=== PATIENT | female | born 1995 | race Caucasian/White ===

== ENCOUNTER 2023-01-08 16:41 | Emergency (ER) | payer OTHER, SELFPAY ==
--- NOTE | 2023-01-08 16:45 | ED.URI ---
HPI - URI/Sore Throat General Chief Complaint: Upper Respiratory Infection Stated Complaint: Strep Symptoms Time Seen by Provider: 01/08/23 16:45 Source: patient Mode of arrival: ambulatory Limitations: no limitations History of Present Illness HPI Narrative: Patient is a 27-year-old female who presents with 2 days of sore throat, diarrhea and mild congestion. Daughter tested positive for strep throat on Saturday and is currently getting treatment. Patient does co-sleep with daughter and is concerned daughter gave her strep. Denies any fever, chills, ear pain, cough, shortness of breath. Patient has been taking [id number] medication with mild relief. Related Data Home Medications Medication Instructions Recorded Confirmed citalopram 40 mg tablet 40 mg PO DAILY 01/08/23 01/08/23 Allergies Allergy/AdvReac Type Severity Reaction Status Date / Time No Known Allergies Allergy Verified 01/08/23 17:25 Review of Systems Review of Systems: All systems reviewed & are unremarkable except as noted in HPI and below Constitutional: Constitutional: Denies body ache(s), Denies chills, Denies fatigue, Denies fever(s), Denies headache(s), Denies malaise and Denies weakness Eyes: Eyes: Denies blurry vision, Denies itchy eyes and Denies loss of vision ENT: Denies otalgia, Denies headache(s), Reports nasal congestion, Denies sinus pain and Reports sore throat Cardiovascular: Cardiovascular: Denies chest pain, Denies irregular heart rhythm and Denies dyspnea Respiratory: Respiratory: Denies cough and Denies dyspnea Gastrointestinal: Gastrointestinal: Denies abdominal pain, Reports diarrhea, Denies nausea and Denies vomiting Musculoskeletal: Musculoskeletal: Denies back pain, Denies myalgias and Denies arthralgias Integumentary/Breasts: Skin/Breast: Denies pruritus and Denies rash Neurologic: Denies headache(s), Denies loss of vision and Denies weakness Psychiatric: Psychiatric: Reports no additional psychiatric complaints Endocrine: Endocrine: Denies fatigue Allergic/Immunologic: Allergic/Immunologic: Denies itchy eyes PMFSH Comments At time of signature, agree with nursing past medical, surgical, social and family history. There is no relevant family history pertinent to the presenting complaint. Exam Const: General: cooperative, healthy appearing, comfortable, no acute distress and well nourished Nutritional Appearance: well nourished Orientation/consciousness: patient oriented x3 Limitations: no limitations HENMT: Head: normal to inspection, normocephalic and atraumatic Ears: hearing grossly normal bilaterally, external ears normal, TM's normal bilaterally, EAC's normal and no periauricular adenopathy Face/Nose/Sinus: Normal external nose present, Abnormal mucous membranes and turbinates present erythematous bilateral and diffuse, normal facial exam, sinuses nontender and face symmetric Face and sinus: normal facial exam, sinuses nontender and face symmetric Mouth: Yes Normal oral and palatal mucosa present, Yes lip normal, Yes tongue normal, Yes Normal salivary glands and ducts present, Yes oropharynx normal and Yes moist mucous membranes Teeth and gingiva: dentition normal Throat: uvula midline, abnormal tonsil bilateral erythema and hypertrophy 1+, posterior oropharynx abnormal erythema and postnasal drainage Eyes: General: appearance normal, both eyes and all related structures Alignment and Position: alignment normal and position normal Periorbital: periorbital findings normal Eyelids: eyelids normal Pupils: Equal, round and reactive pupils present Neck: Neck: normal visual inspection, full ROM, no lymphadenopathy and supple Chest: Chest palpation & inspection: normal inspection of the chest and normal palpation of entire chest wall Resp: Effort & Inspection: normal respiratory effort and able to speak in complete sentences Auscultation: clear to auscultation bilaterally, no crackles, no rales, no rhonchi
[2023-01-08 16:52] VITALS: BP 129/86; PULSE 78; RESP 16; TEMP 36.3; O2SAT 100
== END 2023-01-08 17:30 | disposition home or self-care (01) ==
PROVIDERS: Emergency Provider Nurse Practitioner Family; PCP Family Medicine
DX: J03.90 Acute tonsillitis, unspecified (principal); Z20.818 Contact with and (suspected) exposure to other bacterial communicable diseases
CPT/HCPCS: 87081; 87880; 99213; G0463

== ENCOUNTER 2024-06-16 11:53 | Emergency (ER) | payer OTHER, SELFPAY ==
--- NOTE | 2024-06-16 11:55 | ECG_ITS ---
Test Date: 2024-06-16 12:49:35 Measurements Intervals [place] Rate: 108 P: 52 MO: 124 QRS: 35 QRSD: 85 T: 21 QT: 363 QTc: 487 Interpretive Statements SINUS TACHYCARDIA POSSIBLE LEFT ATRIAL ENLARGEMENT ST-T WAVE ABNORMALITY IN INF/LAT LEADS- CONSIDER ISCHEMIA BASELINE ARTIFACT- I, II, III, AVR, AVL, AVF, V1-V6 ABNORMAL ECG No previous ECG available for comparison Electronically Signed On 06-17-2024 14:01:49 [employer] by Abdullahi Beltran D.O.
--- OUTSIDE RECORDS SUMMARY | 2024-06-16 12:13 | XMS_ITS | Clinical Summary ---
Author Organization [facility] Address [address] [place] [address] Phone Care Team Providers Care Tool Operator Name Role Phone Unavailable Primary Care Provider Unavailabl e Allergies Active Allergy Reactions Criticality Noted Date Comments Other Unknown 05/16/2015 supramax Medications SPRINTEC 28 0.25-35 MG-MCG Tablet Take 1 Tab by mouth daily. 11 03/05/2015 Active cyanocobalamin 1000 MCG Tablet Take 1,000 mcg by mouth daily. Active Cholecalciferol (VITAMIN D PO) Take 50,000 Units by mouth daily. Active topiramate (TOPAMAX) 25 MG Tablet Take 2 tablets by mouth in the morning and 3 tabs by mouth in the evening 450 Tab 02/19/2018 Active Active Problems Problem Noted Date Diagnosed Date Encephalomalacia 06/27/2015 Vitamin D insufficiency 06/27/2015 B12 deficiency 06/27/2015 Persistent headaches 06/27/2015 Hyperlipidemia 06/27/2015 Immunizations Immunization Administration Dates Next Due Influenza Vaccine greater than 3 yrs 01/21/2018, 01/14/2015 01/15/2016 Family History Medical History Relation Name Comments Hypertension Father Cancer Maternal Grandmother Diabetes Mother Relation Name Status Comments Father Alive Maternal Grandmother Mother Alive Social History Tobacco Use Types Packs/Day Years Used Date Smoking Tobacco: Never Smokeless Tobacco: Never Alcohol Use Standard Drinks/Week Comments Yes 0 (1 standard drink = 0.6 oz pur e alcohol) weekly Comments No Sex and Gender Information Value Date Recorded Sex Assigned at Not on file Legal Sex Female 9:02 PM CDT Gender Identity Not on file Sexual Orientation Not on file Last Filed Vital Signs Vital Sign Reading Time Taken Comments Blood Pressure 122/84 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 Pulse 90 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 Temperature 36.6 ??C (97.9 ??F) 06/27/2015 7:00 AM CS T Respiratory Rate - - Oxygen Saturation 91% 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 Inhaled Oxygen Concentration - - Weight 69.3 kg (152 lb 11.2 oz) 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 Height 160 cm (5' 3 ) 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 Body Mass Index 27.05 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 Plan of Treatment Health Maintenance Due Date Last Done Comments Hepatitis C Virus (HCV) Screening 1993 Pap Smear 2014 Cervical Cancer Screening ([facility]) 09/28/2023 HPV/Cotest 09/28/2023 Influenza Immunization (#1) 2024 10/0 07/2020, 03/21/2020, 12/30/2018, Additional history exists SARS-COV-2 Immunization ( season) 2024 04/17/2021, 09/08/2020, 08/18/2020 Respiratory Syncytial Virus (RSV) Immunization (Adult) (1 - 1-dose 75+ series) 2068 Hepatitis B Immunization Completed 994, 1993, 1993 TdaP Immunization Completed 05/04/2005 Human Papillomavirus (HPV) Immunization Discontinued 02/03/2009, 03/02/2008, 12/30/2007 Meningococcal Immunization (ACWY) Completed 11/21/2011 Pneumococcal Immunization Combined Aged Out No longer eligible based on patient's age to complete this topic Rotavirus Immunization Aged Out No lo nger eligible based on patient's age to complete this topic Insurance [place]
--- OUTSIDE RECORDS SUMMARY | 2024-06-16 12:13 | XMS_ITS ---
Author Organization [facility] Address [address] [place] [address] Phone Care Team Providers Care Prototype Technician Name Role Phone MACO COX, DAQUAN Dow Unavailable [phone] AZAEL ELIZABETH MD Primary Care Provider [phone] Problems Includes: Active, inactive, and resolved Problems All Visits Onset Date Resolved Date Provider Condition S tatus History of Breast Disorders 07/26/2017 Unknown DAQUAN DEWEY MD Resolved Last Documented On 07/09/2018 11:40AM ; [facility] Note: was Closed. History of Depression 07/26/2017 Unknown DAQUAN DEWEY MD Resolved Last Documented On 07/09/2018 11:40AM ; [facility] Note: was Closed. History of Diabetes Mellitus 07/26/2017 Unknown DAQUAN DEWEY MD Resolved Last Documented On 07/09/2018 11:40AM ; [facility] Note: was Closed. History of Essential Hypertension 07/26/2017 Unknown DAQUAN DEWEY MD Resolved Last Documented On 07/09/2018 11:40AM ; [facility] Note: was Closed. History of Neurologic Disorders 07/26/2017 Unknown DAQUAN DEWEY MD Resolved Last Documented On 07/09/2018 11:40AM ; [facility] Note: was Closed. History of Psychiatric Disorders 07/26/2017 Unknown DAQUAN DEWEY MD Resolved Last Documented On 07/09/2018 11:40AM ; [facility] Note: was Closed. History of Reported Physical Trauma 07/26/2017 Unknown DAQUAN DEWEY MD Resolved Last Documented On 07/09/2018 11:40AM ; [facility] Note: was Closed. History of Thromboembolic Disease 07/26/2017 Unknown DAQUAN DEWEY MD Resolved Last Documented On 07/09/2018 11:40AM ; [facility] Note: was Closed. History of Thyroid Disorders 07/26/2017 Unknown DAQUAN DEWEY MD Resolved Last Documented On 07/09/2018 11:40AM ; [facility] Note: was Closed. Reported Previous Std 07/26/2017 Unknown DAQUAN DEWEY MD Resolved Last Documented On 07/09/2018 11:40AM ; [facility] Note: was Closed. Respiratory Disorders 07/26/2017 Unknown DAQUAN DEWEY MD Resolved Last Documented On 07/09/2018 11:40AM ; [facility] Note: was Closed. Vulvovaginitis Dianne Albicans 10/14/2012 NATIVIDAD PERRY RN [facility] Active Last Documented On 10/14/2012 9:11AM ; [facility] Note: Unchanged Candidiasis Vaginal 05/01/2012 NATIVIDAD PERRY RN [facility] Inactive Last Documented On 10/14/2012 9:11AM ; [facility] Note: Unchanged History of Allergic Rhinitis 05/01/2012 NATIVIDAD PERRY RN [facility] Active Last Documented On 05/01/2012 11:32AM ; [facility] Note: Unchanged - seasonal History of Depression 05/01/2012 NATIVIDAD PERRY RN [facility] Active Last Documented On 05/01/2012 11:32AM ; [facility] Note: Unchanged Female Pelvic Pain 12/07/2009 IMTIAZ EMERSON Active Last Documented On 12/07/2009 1:31PM ; [facility] Note: Unchanged Dysmenorrhea 12/07/2009 IMTIAZ EMERSON Active Last Documented On 12/07/2009 1:31PM ; [facility] Note: Unchanged Plan of Treatment Findings Encounter Date Ordered Clinical summary pro vided to patient WELL WOMAN EXAM with NATIVIDAD PERRY RN ASHLEY 03/03/2019 Last Documented On 9 9:37AM ; [facility] Cervix easily visualized , c ervix swabbed with Betadine PROCEDURE OFFICE with DAQUAN DEWEY MD 04/09/2018 Last Documented On 8 9:39AM ; [facility] Tray Line Supervisor removed. PROCEDURE OFFICE with DAQUAN GALLO MD 04/09/2018 Last Documented On 8 9:39AM ; [facility] IUD strings trimmed to 3-4 cm. PROCEDURE OFFICE with DAQUAN DEWEY MD 04/09/2018 Last Documented On 8 9:39AM ; [facility] Mirena contract administration specialist introduced t hrough cervix to 7 cm PROCEDURE OFFICE with DAQUAN DEWEY MD 04/09/2018 Last Documented On 8 9:39AM ; [facility] Mirena contract administration specialist phlange posi tioned to 8 cm, also PROCEDURE OFFICE with DAQUAN DEWEY MD 04/09/2018 Last Documented On 8 9:39AM ; [facility] Mirena released and contract administration specialist advanced to 8 cm PROCEDURE OFFICE with DAQUAN DEWEY MD 04/09/2018 Last Documented On 8 9:39AM ; [facility] Patient tolerated procedure well PROCEDURE OFFIC E with DAQUAN DEWEY MD 04/09/2018 Last Documented On 8 9:39AM ; [facility] Sterile speculum inserted PROCEDURE OFFICE with DAQUAN DEWEY MD 04/09/2018 Last Documented On 8 9:39AM ; [facility] Tenaculum applied to anterior cervix. AK OCEDURE OFFICE with DAQUAN DEWEY MD 04/09/2018 Last Documented On 8 9:39AM ; [facility] Tenaculum removed and pressu re applied to tenaculum sites with cotton swabs until hemostatis obtained. PROCEDURE OFFICE with DAQUAN DEWEY MD 04/09/2018 Last Documented On 8 9:39AM ; [facility] Uterus sounded to 7 cm PROCEDURE OFFICE with DAQUAN DEWEY MD 04/09/2018 Last Documented On 8 9:39AM ; [facility] Ordered Clinical summary pro vided to patient MISSED MENSES with NATIVIDAD PERRY RN [facility] 06/20/2017 Last Documented On 8 8:36AM ; [facility] Ordered Clinical summary pro vided to patient TERMITE CONTROL SERVICER EXAM with NATIVIDAD PERRY RN ASHLEY 01/09/2017 Last Documented On 7 2:57PM ; [facility] Ordered Clinical summary pro vided to patient RECHECK with NATIVIDAD PERRY RN [facility] 02/09/2016 Last Documented On 6 10:36AM ; [facility] Ordered Clinical summary pro vided to patient TERMITE CONTROL SERVICER EXAM with NATIVIDAD PERRY RN ASHLEY 01/09/2016 Last Documented On 6 10:16AM ; [facility] Ordered Clinical summary pro vided to patient TERMITE CONTROL SERVICER EXAM with NATIVIDAD PERRY RN ASH[facility] 10/26/2014 Last Documented On 5 4:19PM ; [facility] Ordered Clinical summary pro vided to patient TERMITE CONTROL SERVICER EXAM with NATIVIDAD PERRY RN [facility] 07/27/2013 Last Documented On 4 10:23AM ; [facility] Ordered a vaginal culture SHIVA GBBS PROBL EM VISIT with NATIVIDAD PERRY RN ASHLEY 11/11/2012 Last Documented On 3 2:05PM ; [facility] Ordered Clinical summary pro vided to patient PROBLEM VISIT with NATIVIDAD PERRY RN [facility] 10/14/2012 Last Documented On 3 9:11AM ; [facility] Pt will let us know if she h as any problems and present back for a second BP check visit like this in 3 months for refilll of pills till time for her WWE next year NEW TERMITE CONTROL SERVICER EXAM with DAQUAN DEWEY MD 04/11/2011 Last Documented On 1 5:13PM ; [facility] Ordered follow-up visit Afte r rn gyn ultrasound to discuss results and possibility of starting OCP's NEW TERMITE CONTROL SERVICER EXAM with IMTIAZ EMERSON 12/07/2009 Last Documented On 0 1:33PM ; [facility] Instructions to patient Instructions for patient : B reast Self Exam discussed and technique reviewed Last Documented On 9 8:48AM ; [facility] Use a condom during sexual i ntercourse Last Documented On 9 8:48AM ; [facility] Instructed to call if excess anish bleeding or abdominal/pelvic pain Last Documented On 9 8:48AM ; [facility] Recommend diet and exercise at least 30 min three times per week Last Documented On 9 8:48AM ; [facility] Instructions for patient ER if dizzy, vomiting or light-headed due to heavy bleeding Last Documented On 9 8:58AM ; [facility] Instructions for patient ER if bleeding through reg. sized pad/tampon < 1 hour Last Documented On 9 8:58AM ; [facility] Instructions for patient : B reast Self Exam discussed and technique reviewed Last Documented On 7 1:21PM ; [facility] Use a condom during sexual i ntercourse Last Documented On 7 1:21PM ; [facility] Instructed to call if excess anish bleeding or abdominal/pelvic pain Last Documented On 7 1:21PM ; [facility] Recommend diet and exercise at least 30 min three times per week Last Documented On 7 1:21PM ; [facility] Instructions for patient : B reast Self Exam discussed and technique reviewed Last Documented On 6 10:03AM ; [facility] Use a condom during sexual i ntercourse Last Documented On 6 10:03AM ; [facility] Instructed to call if excess anish bleeding or abdominal/pelvic pain Last Documented On 6 10:03AM ; [facility] Recommend diet and exercise at least 30 min three times per week Last Documented On 6 10:03AM ; [facility] Instructions for patient : B reast Self Exam discussed and technique reviewed Last Documented On 5 4:09PM ; [facility] Use a condom during sexual i ntercourse Last Documented On 5 4:09PM ; [facility] Instructed to call if excess anish bleeding or abdominal/pelvic pain Last Documented On 5 4:09PM ; [facility] Recommend diet and exercise at least 30 min three times per week Last Documented On 5 4:09PM ; [facility] Instructions for patient : B reast Self Exam discussed and technique reviewed Last Documented On 4 10:01AM ; [facility] Use a condom during sexual i ntercourse Last Documented On 4 10:01AM ; [facility] Instructed to call if excess anish bleeding or abdominal/pelvic pain Last Documented On 4 10:01AM ; [facility] Recommend diet and exercise at least 30 min three times per week DISCUSSED SMALL FREQ. MEALS, INCREASED WATER INTAKE, ACTIVITIES BETWEEN CLASSES. ALL QUESTIONS ANSWERED Last Documented On 4 10:23AM ; [facility] Instructions for patient : K eep the area around the vulva dry. Allow the area to have exposure to air. Avoid irritants such as fabric softeners and perfumed soaps.~ Last Documented On 3 2:02PM ; [facility] Instructions for patient : K eep the area around the vulva dry. Allow the area to have exposure to air. Avoid irritants such as fabric softeners and perfumed soaps.~ Last Documented On 3 9:02AM ; [facility] Instructions for patient : B reast Self Exam discussed and technique reviewed Last Documented On 2 11:03AM ; [facility] Use a condom during sexual i ntercourse Last Documented On 2 11:03AM ; [facility] Instructions For Patient: Mo nthly Self Breast Exam Last Documented On 2 11:03AM ; [facility] Recommend diet and exercise at least 30 min three times per week Last Documented On 2 11:03AM ; [facility] Recommend preventative vacci nation including but not limited to influenza/flu vaccine, DTP, Rubella, Hepatitis B vaccination series Last Documented On 2 11:03AM ; [facility] Education and Decision Aids were provided during visit for: New OB form given to patient Last Documented On 8 8:33AM ; [facility] Patient education RE: natalee g signals associated with hormonal contraceptive use including abdominal, chest, or leg pain, headaches or visual disturbances Last Documented On 7 1:21PM ; [facility] Patient Education: Daily anoop cium and vitamin D Last Documented On 7 1:21PM ; [facility] Patient education RE: warmein g signals associated with hormonal contraceptive use including abdominal, chest, or leg pain, headaches or visual disturbances Last Documented On 6 10:03AM ; [facility] Patient Education: Daily anoop cium and vitamin D Last Documented On 6 10:03AM ; [facility] Patient education RE: natalee painter signals associated with hormonal contraceptive use including abdominal, chest, or leg pain, headaches or visual disturbances Last Documented On 5 4:09PM ; [facility] Patient Education: Daily anoop cium and vitamin D Last Documented On 5 4:09PM ; [facility] Discussed smoking and drug u se Last Documented On 4 10:01AM ; [facility] Patient education RE: natalee painter signals associated with hormonal contraceptive use including abdominal, chest, or leg pain, headaches or visual disturbances Last Documented On 4 10:01AM ; [facility] Patient Education: Daily anoop cium and vitamin D Last Documented On 4 10:01AM ; [facility] Patient education :VAGINAL H YGIENE AND SITZ BATHS TO RELIEVE SX Last Documented On 3 2:05PM ; [facility] Patient education :HANDOUT G LATASHA PT DECLINES STI SEROLOGY Last Documented On 3 9:11AM ; [facility] Patient counseling :VAGINAL HYGIENE Last Documented On 3 9:11AM ; [facility] Discussed use of seat belts Last Documented On 2 11:03AM ; [facility] Discussed smoking and drug u se Last Documented On 2 11:03AM ; [facility] Discussed risk-taking behavi or Last Documented On 2 11:03AM ; [facility] Patient education RE: natalee painter signals associated with hormonal contraceptive use including abdominal, chest, or leg pain, headaches or visual disturbances Last Documented On 2 11:03AM ; [facility] Patient Education: Daily anoop cium and vitamin D Last Documented On 2 11:03AM ; [facility] Patient Education: weight be aring exercise Last Documented On 2 11:03AM ; [facility] Patient will maintain adequa te intake of dietary Ca+ and Mg+ Last Documented On 2 11:03AM ; [facility] control consent review ed and signed Last Documented On 2 11:03AM ; [facility] R/B/A to OCP's are reviewed with the patient and her mother who is present today. Correct pill taking is reviewed, questions answered and pt expresses understanding and wants to continue on the pill Last Documented On 2 5:44PM ; [facility] Risks, benefits, and alterna tives to OCP's are reviewed. Correct pill taking is discussed. Questions answered. Pt expresses understanding and wants to continue on her OCP's Last Documented On 2 8:58AM ; [facility] Assessments Includes: Assessments for all patient encounters Findings Encounter Date Major depression, recurrent WELL WOMAN EXAM with NATIVIDAD PERRY RN [facility] 03/03/2019 Last Documented On 9 9:37AM ; [facility] NORMAL FEMALE EXAM WELL WOMAN EXAM with NATIVIDAD PERRY RN [facility] 03/03/2019 Last Documented On 9 9:37AM ; [facility] Screen malignant neoplasm cervix WELL WO MAN EXAM with NATIVIDAD PERRY RN [facility] 03/03/2019 Last Documented On 9 9:37AM ; [facility] Vaginal candidiasis and topical R breast WELL WOMAN EXAM with NATIVIDAD PERRY RN [facility] 03/03/2019 Last Documented On 9 9:37AM ; [facility] Major depressive disorder resolved MED CHECK wit chi PERRY RN [facility] 10/28/2018 Last Documented On 9 4:16PM ; [facility] Dysfunctional uterine bleeding PROBLEM VISIT wit chi PERRY RN [facility] 09/11/2018 Last Documented On 9 9:29AM ; [facility] Major depressive disorder PROBLEM VISIT with ERIC PERRY RN [facility] 09/11/2018 Last Documented On 9 9:29AM ; [facility] Vaginitis PROBLEM VISIT with NATIIVDAD PERRY RN [facility] 09/11/2018 Last Documented On 9 9:29AM ; [facility] Checking intrauterine device (IUD) 1 MONTH CHECK with DAQUAN DEWEY MD 05/14/2018 Last Documented On 9 9:08AM ; [facility] Contraceptive management: In sertion of IUD PROCEDURE OFFICE with DAQUAN DEWEY MD 04/09/2018 Last Documented On 8 9:39AM ; [facility] General counseling on contraception PROC EDURE OFFICE with DAQUAN DEWEY MD 04/09/2018 Last Documented On 8 9:39AM ; [facility] Routine history a nd physical POST VISIT with DAQUAN DEWEY MD 02/26/2018 Last Documented On 8 11:38AM ; [facility] exam with positive result confirmed by vaginal examination MISSED MENSES with NATIVIDAD PERRY RN [facility] 06/20/2017 Last Documented On 8 8:36AM ; [facility] Vaginal candidiasis MISSED MENSES with NATIVIDAD BRAVO RN [facility] 06/20/2017 Last Documented On 8 8:36AM ; [facility] NORMAL FEMALE EXAM TERMITE CONTROL SERVICER EXAM with NATIVIDAD [place] [facility] 01/09/2017 Last Documented On 7 2:57PM ; [facility] Screen malignant neoplasm cervix TERMITE CONTROL SERVICER EXAM with Victor M PERRY RN [facility] 01/09/2017 Last Documented On 7 2:57PM ; [facility] Routine pelvic exam TERMITE CONTROL SERVICER EXAM with NATIVIDAD PERRY RN [facility] 01/09/2016 Last Documented On 6 10:16AM ; [facility] Screen malignant neoplasm cervix TERMITE CONTROL SERVICER EXAM with Victor M PERRY RN [facility] 01/09/2016 Last Documented On 6 10:16AM ; [facility] Contraceptive management TERMITE CONTROL SERVICER EXAM with NATIVIDAD BRAVO RN [facility] 10/26/2014 Last Documented On 5 4:19PM ; [facility] Routine gynecological exam TERMITE CONTROL SERVICER EXAM with NATIVIDAD PERRY RN [facility] 10/26/2014 Last Documented On 5 4:19PM ; [facility] Contraceptive management TERMITE CONTROL SERVICER EXAM with NATIVIDAD BRAVO RN [facility] 07/27/2013 Last Documented On 4 10:23AM ; [facility] Routine gynecological exam TERMITE CONTROL SERVICER EXAM with NATIVIDAD PERRY RN [facility] 07/27/2013 Last Documented On 4 10:23AM ; [facility] Vaginal candidiasis PROBLEM VISIT with NATIVIDAD BRAVO RN [facility] 11/11/2012 Last Documented On 3 2:05PM ; [facility] Dianne albicans vulvovaginitis PROBLEM VISIT with NATIVIDAD PERRY RN [facility] 10/14/2012 Last Documented On 3 9:11AM ; [facility] Contraceptive management NEW TERMITE CONTROL SERVICER EXAM with NATIVIDAD PERRY RN [facility] 05/01/2012 Last Documented On 2 11:32AM ; [facility] NORMAL FEMALE EXAM NEW TERMITE CONTROL SERVICER EXAM with NATIVIDAD SAGE RN [facility] 05/01/2012 Last Documented On 2 11:32AM ; [facility] Routine gynecological exam NEW TERMITE CONTROL SERVICER EXAM with ERIC PERRY RN [facility] 05/01/2012 Last Documented On 2 11:32AM ; [facility] SCREENING FOR STD NEW TERMITE CONTROL SERVICER EXAM with NATIVIDAD Cameron RN [facility] 05/01/2012 Last Documented On 2 11:32AM ; [facility] Vaginal candidiasis NEW TERMITE CONTROL SERVICER EXAM with NATIVIDAD WOODARD RN [facility] 05/01/2012 Last Documented On 2 11:32AM ; [facility] Menorrhagia -- controlling with OCP's BL OOD PRESSURE CHECK-UP with DAQUAN DEWEY MD 10/16/2011 Last Documented On 2 5:45PM ; [facility] Encounter for contraceptive pill surveillance BLOOD PRESSURE CHECK-UP with DAQUAN DEWEY MD 07/11/2011 Last Documented On 2 9:00AM ; [facility] Menorrhagia BLOOD PRESSURE CHECK-UP with DAQUAN DEWEY MD 07/11/2011 Last Documented On 2 9:00AM ; [facility] Menorrhagia NEW TERMITE CONTROL SERVICER EXAM with DAQUAN DEWEY MD 04/11/2011 Last Documented On 1 5:13PM ; [facility] Dysmenorrhea NEW TERMITE CONTROL SERVICER EXAM with IMTIAZ Lal UR AM 12/07/2009 Last Documented On 0 1:33PM ; [facility] Female pelvic pain NEW TERMITE CONTROL SERVICER EXAM with IMTIAZ Lal URAM 12/07/2009 Last Documented On 0 1:33PM ; [facility] Instructions Includes: Instructions for all patient encounters Instructions to patient Instructions for patient : B reast Self Exam discussed and technique reviewed Last Documented On 9 8:48AM ; [facility] Use a condom during sexual i ntercourse Last Documented On 9 8:48AM ; [facility] Instructed to call if excess anish bleeding or abdominal/pelvic pain Last Documented On 9 8:48AM ; [facility] Recommend diet and exercise at least 30 min three times per week Last Documented On 9 8:48AM ; [facility] Instructions for patient ER if dizzy, vomiting or light-headed due to heavy bleeding Last Documented On 9 8:58AM ; [facility] Instructions for patient ER if bleeding through reg. sized pad/tampon < 1 hour Last Documented On 9 8:58AM ; [facility] Instructions for patient : B reast Self Exam discussed and technique reviewed Last Documented On 7 1:21PM ; [facility] Use a condom during sexual i ntercourse Last Documented On 7 1:21PM ; [facility] Instructed to call if excess anish bleeding or abdominal/pelvic pain Last Documented On 7 1:21PM ; [facility] Recommend diet and exercise at least 30 min three times per week Last Documented On 7 1:21PM ; [facility] Instructions for patient : B reast Self Exam discussed and technique reviewed Last Documented On 6 10:03AM ; [facility] Use a condom during sexual i ntercourse Last Documented On 6 10:03AM ; [facility] Instructed to call if excess anish bleeding or abdominal/pelvic pain Last Documented On 6 10:03AM ; [facility] Recommend diet and exercise at least 30 min three times per week Last Documented On 6 10:03AM ; [facility] Instructions for patient : B reast Self Exam discussed and technique reviewed Last Documented On 5 4:09PM ; [facility] Use a condom during sexual i ntercourse Last Documented On 5 4:09PM ; [facility] Instructed to call if excess anish bleeding or abdominal/pelvic pain Last Documented On 5 4:09PM ; [facility] Recommend diet and exercise at least 30 min three times per week Last Documented On 5 4:09PM ; [facility] Instructions for patient : B reast Self Exam discussed and technique reviewed Last Documented On 4 10:01AM ; [facility] Use a condom during sexual i ntercourse Last Documented On 4 10:01AM ; [facility] Instructed to call if excess anish bleeding or abdominal/pelvic pain Last Documented On 4 10:01AM ; [facility] Recommend diet and exercise at least 30 min three times per week DISCUSSED SMALL FREQ. MEALS, INCREASED WATER INTAKE, ACTIVITIES BETWEEN CLASSES. ALL QUESTIONS ANSWERED Last Documented On 4 10:23AM ; [facility] Instructions for patient : K eep the area around the vulva dry. Allow the area to have exposure to air. Avoid irritants such as fabric softeners and perfumed soaps.~ Last Documented On 3 2:02PM ; [facility] Instructions for patient : K eep the area around the vulva dry. Allow the area to have exposure to air. Avoid irritants such as fabric softeners and perfumed soaps.~ Last Documented On 3 9:02AM ; [facility] Instructions for patient : B reast Self Exam discussed and technique reviewed Last Documented On 2 11:03AM ; [facility] Use a condom during sexual i ntercourse Last Documented On 2 11:03AM ; [facility] Instructions For Patient: Mo nthly Self Breast Exam Last Documented On 2 11:03AM ; [facility] Recommend diet and exercise at least 30 min three times per week Last Documented On 2 11:03AM ; [facility] Recommend preventative vacci nation including but not limited to influenza/flu vaccine, DTP, Rubella, Hepatitis B vaccination series Last Documented On 2 11:03AM ; [facility] Education and Decision Aids were provided during visit for: New OB form given to patient Last Documented On 8 8:33AM ; [facility] Patient education RE: warnin g signals associated with hormonal contraceptive use including abdominal, chest, or leg pain, headaches or visual disturbances Last Documented On 7 1:21PM ; [facility] Patient Education: Daily anoop cium and vitamin D Last Documented On 7 1:21PM ; [facility] Patient education RE: warnin g signals associated with hormonal contraceptive use including abdominal, chest, or leg pain, headaches or visual disturbances Last Documented On 6 10:03AM ; [facility] Patient Education: Daily anoop cium and vitamin D Last Documented On 6 10:03AM ; [facility] Patient education RE: warnin g signals associated with hormonal contraceptive use including abdominal, chest, or leg pain, headaches or visual disturbances Last Documented On 5 4:09PM ; [facility] Patient Education: Daily anoop cium and vitamin D Last Documented On 5 4:09PM ; [facility] Discussed smoking and drug u se Last Documented On 4 10:01AM ; [facility] Patient education RE: warnin g signals associated with hormonal contraceptive use including abdominal, chest, or leg pain, headaches or visual disturbances Last Documented On 4 10:01AM ; [facility] Patient Education: Daily anoop cium and vitamin D Last Documented On 4 10:01AM ; [facility] Patient education :VAGINAL H YGIENE AND SITZ BATHS TO RELIEVE SX Last Documented On 3 2:05PM ; [facility] Patient education :HANDOUT Edgar PAGAN PT DECLINES STI SEROLOGY Last Documented On 3 9:11AM ; [facility] Patient counseling :VAGINAL HYGIENE Last Documented On 3 9:11AM ; [facility] Discussed use of seat belts Last Documented On 2 11:03AM ; [facility] Discussed smoking and drug u se Last Documented On 2 11:03AM ; [facility] Discussed risk-taking behavi or Last Documented On 2 11:03AM ; [facility] Patient education RE: warnin g signals associated with hormonal contraceptive use including abdominal, chest, or leg pain, headaches or visual disturbances Last Documented On 2 11:03AM ; [facility] Patient Education: Daily anoop cium and vitamin D Last Documented On 2 11:03AM ; [facility] Patient Education: weight be aring exercise Last Documented On 2 11:03AM ; [facility] Patient will maintain adequa te intake of dietary Ca+ and Mg+ Last Documented On 2 11:03AM ; [facility] control consent review ed and signed Last Documented On 2 11:03AM ; [facility] R/B/A to OCP's are reviewed with the patient and her mother who is present today. Correct pill taking is reviewed, questions answered and pt expresses understanding and wants to continue on the pill Last Documented On 2 5:44PM ; [facility] Risks, benefits, and alterna tives to OCP's are reviewed. Correct pill taking is discussed. Questions answered. Pt expresses understanding and wants to continue on her OCP's Last Documented On 2 8:58AM ; [facility] Medical Equipment - Implanted Devices Includes: Current and historical Devices No Medical Equipment Recorded Medications Includes: Current and historical Medications Current Medications (continue as prescribed) [facility] Ibuprofen 200MG Oral Tablet 09/11/2018 Provider: Diagnosis: PRN Last Documented On 9 8:14AM By MARIBEL PLUMMER ; [facility] Paragard Intrauterine Copper Intrauterine device 04/09 Provider: Diagnosis: Last Documented On 9 8:04AM By MARIBEL PLUMMER ; [facility] Past Medications on file Fluconazole 150 MG Oral Tablet 01/14/2020 - 01/16/2020 Provider: NATIVIDAD DOUGLAS Diagnosis: Acute vaginitis as directed take 1 tablet to day and repeat in 3 days Last Documented On 0 1:09PM By NATIVIDAD DOUGLAS-ASUNCION ; [facility] Citalopram Hydrobromide 20 MG Oral Tablet 12/28/2019 - 03/27/2020 Provider: NATIVIDAD DOUGLAS BC Diagnosis: Major depressive disorder, recurrent, unspecified One tablet daily Last Documented On 0 1:43PM By NATIVIDAD RODRIGUEZ ; [facility] Fluconazole 150 MG Oral Tablet 03/03/2019 - 03/06/2019 Provider: NATIVIDAD DOUGLAS Diagnosis: Candidiasis of v ulva and vagina TAKE 1 TAB today and repeat in 3 days Last Documented On 9 9:11AM By NATIVIDAD RODRIGUEZ ; [facility] Citalopram Hydrobromide 20 MG Oral Tablet 03/03/2019 - 12/28/2019 Provider: NATIVIDAD DOUGLAS Diagnosis: Major depressive disorder, recurrent, unspecified One tablet daily Last Documented On 0 1:41PM By NATIVIDAD RODRIGUEZ ; [facility] Citalopram Hydrobromide 20MG Oral Tablet 10/28/2018 - 03/03/2019 Provider: NATIVIDAD DOUGLAS Diagnosis: Major depressive disorder, recurrent, unspecified One tablet daily Last Documented On 9 9:10AM By NATIVIDAD RODRIGUEZ ; [facility] Citalopram Hydrobromide 20MG Oral Tablet 10/28/2018 - 10/28/2018 Provider: Diagnosis: Last Documented On 9 4:07PM By NATIVIDAD RODRIGUEZ ; [facility] Citalopram Hydrobromide 20MG Oral Tablet 09/11/2018 - 10/28/2018 Provider: NATIVIDAD DOUGLAS Diagnosis: Encounter for screening for depression One tablet daily no further refills authorized Last Documented On 10/28/2018 3:57PM By MAX PLUMMER ; [facility] Fluconazole 150MG Oral Tablet 09/11/2018 - 01/14/2020 Provider: NATIVIDAD DOUGLAS Diagnosis: Acute vaginitis as directed TAKE ONE TAB day 4 and 1 tab day 7 of antibiotic Last Documented On 0 12:56PM By NATIVIDAD RODRIGUEZ ; [facility] Clindamycin HCl 300MG Oral Capsule 09/11/2018 - 09/18/2018 Provider: NATIVIDAD DOUGLAS Diagnosis: Acute vaginitis One tablet twice a day Last Documented On 9 8:53AM By NATIVIDAD RODRIGUEZ ; [facility] Terazol 7 0.4% Vaginal Cream 05/16/2018 - 09/11/2018 Mervin reavesder: DAQUAN DEWEY MD Diagnosis: Sig: one applicator full vaginally qhs x 7 Last Documented On 9 8:14AM By MARIBEL PLUMMER ; [facility] Paragard Intrauterine Copper Intrauterine device 04/09/2018 - 10/28/2018 Provider: Diagnosis: Last Documented On 9 10:33AM By MARIBEL PLUMMER ; [facility] Eletriptan Hydrobromide 40MG Oral Tablet 02/26/2018 - 09/11/2018 Provider: Diagnosis: Last Documented On 9 8:13AM By MARIBEL PLUMMER ; [facility] Breast Pump Miscellaneous 01/16/2018 - 09/11/2018 Provider: MARISSA OLIVASBC Diagnosis: Encounter for ca re and examination of lactating mother as directed Last Documented On 9 8:13AM By MARIBEL PLUMMER ; [facility] Breast Pump Miscellaneous 01/10/2018 - 01/10/2018 Provider: DAQUAN DEWEY MD Diagnosis: Encounter for ca re and examination of lactating mother Disp one electric breast pum p with supplies; EDC 01/19/2018. Last Documented On 8 2:33PM By MARISSA DOUGLAS-BC ; [facility] ValACYclovir HCl 1GM Oral Tablet 11/25/2017 - 09/12/19 19 Provider: DAQUAN DEEWY MD Diagnosis: One tablet daily Last Documented On 9 8:14AM By MARIBEL PLUMMER ; [facility] Nitrofurantoin Monohyd Macro 100MG Oral Capsule 11/11/2017 - 11/18/2017 Provider: NATIVIDAD DOUGLAS BC Diagnosis: Hematuria, unspe cified One tablet twice a day Last Documented On 8 4:13PM By NATIVIDAD DOUGLAS-BC ; [facility] Amoxicillin 500MG Oral Capsule 08/15/2017 - 08/22/2017 Provider: NATIVIDAD DOUGLAS BC Diagnosis: Acute vaginitis One tablet three times a day TAKE DIRECTED WITH FOOD Last Documented On 8 2:27PM By NATIVIDAD RODRIGUEZ ; [facility] Terconazole 80MG Vaginal Suppository 08/12/2017 - 08/15/2017 Provider: NATIVIDAD DOUGLAS Diagnosis: Candidiasis of v ulva and vagina as directed ONE SUPP IN VAGI NA EVERY NIGHT X 3 Last Documented On 8 8:29AM By NATIVIDAD OLIVAS ; [facility] 28-0.8MG Oral Tablet 06/20/2017 - 019 Provider: Diagnosis: Last Documented On 9 8:13AM By MARIBEL PLUMMER ; [facility] PNV-Select 27-0.6-0.4MG Oral Tablet 06/20/2017 - 06/20/2017 Provider: NATIVIDAD DOUGLAS Diagnosis: Encounter for test, result positive 1 tablet every morning Last Documented On 8 8:30AM By NATIVIDAD RODRIGUEZ ; [facility] Terconazole 80MG Vaginal Suppository 06/20/2017 - 08/12/2017 Provider: NATIVIDAD DOUGLAS Diagnosis: Candidiasis of v ulva and vagina as directed ONE SUPP IN VAGI NA EVERY NIGHT X 3 Last Documented On 8 8:29AM By NATIVIDAD RODRIGUEZ ; [facility] PNV-Select 27-0.6-0.4MG Oral Tablet 06/20/2017 - 06/15/2018 Provider: NATIVIDAD DOUGLAS Diagnosis: Encounter for test, result positive 1 tablet every morning Last Documented On 8 8:30AM By NATIVIDAD RODRIGUEZ ; [facility] Tri-Sprintec 0.18/0.215/0.25MG-35 MCG Oral Tablet 02/25/2017 - 06/20/2017 Provider: NATIVIDAD DOUGLAS Diagnosis: Encounter for contraceptive management, unspecified One tablet daily TAKE DIRECTED W/FOOD Last Documented On 06/20/2017 7:59AM By Chanell Norwood MA ; [facility] Tri-Sprintec 0.18/0.215/0.25MG-35 MCG Oral Tablet 01/09/2017 - 02/25/2017 Provider: NATIVIDAD DOUGLAS BC Diagnosis: Encounter for contraceptive management, unspecified One tablet daily TAKE DIRECTED W/FOOD Last Documented On 7 1:54PM By NATIVIDAD RODRIGUEZ ; [facility] Fluconazole 150MG Oral Tablet 01/09/2017 - 01/11/2017 Provider: NATIVIDAD DOUGLAS BC Diagnosis: Candidiasis of v ulva and vagina One tablet today and repeat in 3 days Last Documented On 7 1:43PM By NATIVIDAD RODRIGUEZ ; [facility] MonoNessa 0.25-35MG-MCG Oral Tablet 12/10/2016 - 01/07/2017 Provider: NATIVIDAD DOUGLAS BC Diagnosis: Encounter for surveillance of contraceptive pills *1 dly - One tablet daily On e tablet daily TAKE TAB DAILY AT THE SAME TIME W/FOOD Last Documented On 7 3:22PM By NATIVIDAD RODRIGUEZ ; [facility] Amitriptyline HCl 50 MG Tablet 01/09/2016 - 06/20/2017 Provider: Diagnosis: Last Documented On 06/20/2017 7:59AM By Chanell Norwood MA ; [facility] MonoNessa 0.25-35 MG-MCG Tablet 01/09/2016 - 12/10/2016 Provider: NATIVIDAD DOUGLAS BC Diagnosis: Encounter for surveillance of contraceptive pills *1 dly - One tablet daily On e tablet daily TAKE TAB DAILY AT THE SAME TIME W/FOOD Last Documented On 7 3:21PM By NATIVIDAD RODRIGUEZ ; [facility] MonoNessa 0.25-35 MG-MCG Tablet 12/14/2015 - 01/11/2016 Provider: NATIVIDAD DOUGLAS BC Diagnosis: One tablet daily Last Documented On 6 11:58AM By NATIVIDAD RODRIGUEZ ; [facility] Sprintec 28 0.25-35 MG-MCG Tablet 09/09/2015 - 11/04/2015 Provider: NATIVIDAD DOUGLAS BC Diagnosis: One tablet daily Last Documented On 6 3:13PM By NATIVIDAD RODRIGUEZ ; [facility] MonoNessa 0.25-35 MG-MCG Tablet 10/26/2014 - 12/14/2015 Provider: NATIVIDAD DOUGLAS BC Diagnosis: OTHER FAMILY ESTEVAN NNING ADVICE NEC One tablet daily Last Documented On 6 11:57AM By NATIVIDAD RODRIGUEZ ; [facility] Sprintec 28 0.25-35 MG-MCG OR TABS 06/28/2014 - 09/09/2015 Provider: NATIVIDAD DOUGLAS BC Diagnosis: Last Documented On 6 3:13PM By NATIVIDAD RODRIGUEZ ; [facility] MonoNessa 0.25-35 MG-MCG OR TABS 07/27/2013 - 10/26/2014 Provider: NATIVIDAD PERRY RN ASHLEY BC Diagnosis: OTHER FAMILY ESTEVAN NNING ADVICE NEC Last Documented On 5 4:13PM By NATIVIDAD RODRIGUEZ ; [facility] Topiramate 200 MG OR TABS 07/27/2013 - 06/20/2017 Prov ider: Diagnosis: 150 MG Last Documented On 06/20/2017 7:59AM By Chanell Norwood MA ; [facility] Imitrex 100 MG OR TABS 07/27/2013 - 01/09/2016 Provide r: Diagnosis: Last Documented On 01/09/2016 10:04AM By BETSY ELENA MA ; [facility] MonoNessa 0.25-35 MG-MCG OR TABS 04/28/2013 - 01/09/2016 Provider: NATIVIDAD DOUGLAS BC Diagnosis: CONTRACEPT PILL SURVEILL TAKE TAB DAILY AT THE SAME TIME W/FOOD Last Documented On 6 10:15AM By NATIVIDAD RODRIGUEZ ; [facility] MonoNessa 0.25-35 MG-MCG OR TABS 04/13/2013 - 04/28/2013 Provider: NATIVIDAD PERRY RN ASHLEY BC Diagnosis: OTHER FAMILY ESTEVAN NNING ADVICE NEC Last Documented On 3 10:32AM By NATIVIDAD RODRIGUEZ ; [facility] Fluconazole 150 MG OR TABS 11/11/2012 - 03/03/2019 Provider: NATIVIDAD DOUGLAS BC Diagnosis: CANDIDAL VULVOVA GINITIS TAKE 1 TAB TODAY , 1 TAB 7/4, AND 1 TAB 7/6 Last Documented On 9 9:10AM By NATIVIDAD RODRIGUEZ ; [facility] Nystatin [id number] UNIT/GM EX CREA 11/11/2012 - 11/18/2012 Provider: NATIVIDAD PERRY RN ASHLEY Diagnosis: CANDIDAL VULVOVA GINITIS APPLY TO AREAS 3 TIMES A DAY DIRECTED PLEASE DISPENSE 30 GM TUBE Last Documented On 3 1:48PM By NATIVIDAD OLIVAS ; [facility] Amoxicillin 500 MG OR CAPS 10/17/2012 - 10/24/2012 Pro vider: NATIVIDAD PERRY RN ASHLEY Diagnosis: VAGINITIS NOS use as directed w/food Last Documented On 3 2:37PM By NATIVIDAD OLIVAS ; [facility] Terconazole 0.4% VA CREA 10/14/2012 - 11/04/2012 Provider: NATIVIDAD PERRY RN ASHLEY Diagnosis: CANDIDAL VULVOVA GINITIS one kenneth in vagina every nigh t x 7 apply bid to perineum Last Documented On 3 9:04AM By NATIVIDAD OLIVAS ; [facility] Fluconazole 150 MG OR TABS 05/01/2012 - 09/11/2018 Provider: NATIVIDAD PERRY RN ASHLEY Diagnosis: CANDIDAL VULVOVA GINITIS TAKE ONE TAB TODAY AND ONE TAB 05/03/12 Last Documented On 9 8:51AM By NATIVIDAD OLIVAS ; [facility] MonoNessa 0.25-35 MG-MCG OR TABS 05/01/2012 - 04/13/2013 Provider: NATIVIDAD PERRY RN ASHLEY Diagnosis: OTHER FAMILY ESTEVAN NNING ADVICE NEC Last Documented On 3 8:18AM By NATIVIDAD OLIVAS ; [facility] Ortho-Cyclen (28) 0.25-35 MG-MCG OR TABS 03/27/2012 - 04/24/2012 Provider: DAQUAN DEWEY MD Diagnosis: Excessive Menstr uation Last Documented On 03/27/2012 1:42PM By DAQUAN DEWEY MD ; [facility] Ortho-Cyclen (28) 0.25-35 MG-MCG OR TABS 10/16/2011 - 03/27/2012 Provider: DAQUAN DEWEY MD Diagnosis: Excessive Menstr uation Last Documented On 03/27/2012 1:41PM By DAQUAN DEWEY MD ; [facility] Ortho-Cyclen (28) 0.25-35 MG-MCG OR TABS 07/23/2011 - 10/16/2011 Provider: DAQUAN DEWEY MD Diagnosis: Excessive Menstr uation Last Documented On 10/16/2011 4:38PM By DAQUAN DEWEY MD ; [facility] Ortho-Cyclen (28) 0.25-35 MG-MCG OR TABS 04/11/2011 - 07/11/2011 Provider: DAQUAN DEWEY MD Diagnosis: Excessive Menstr uation Last Documented On 07/23/2011 8:59AM By DAQUAN DEWEY MD ; [facility] Zoloft 25 MG OR TABS 12/07/2009 - 07/27/2013 Provider: Diagnosis: Last Documented On 07/27/2013 9:52AM By RAMESH ESPINO ; [facility] Medications Administered Includes: Administered Medications in patient's chart No Administered Medications Recorded Results Includes: Results from 06/16/2023 through 06/16/2024 No Results Recorded For Specified Dates History of Present Illness History of Present Illness not supported for this document type No History of Present Illness Recorded Social History Description Last Updated Currently 03/03/2019 Last Documented On 9 9:37AM ; [facility] Activities 03/03/2019 Last Documented On 9 9:37AM ; [facility] Amount of sleep 03/03/2019 Last Documented On 9 9:37AM ; [facility] Education history 03/03/2019 Last Documented On 9 9:37AM ; [facility] Educational level 03/03/2019 Last Documented On 9 9:37AM ; [facility] Personal history 03/03/2019 Last Documented On 9 9:37AM ; [facility] Sexually active 03/03/2019 Last Documented On 9 9:37AM ; [facility] Alcohol use socially 03/03/2019 Last Documented On 9 9:37AM ; [facility] In monogamous relationship 03/03/2019 Last Documented On 9 9:37AM ; [facility] Non-smoker 03/03/2019 Last Documented On 9 9:37AM ; [facility] Not using drugs 03/03/2019 Last Documented On 9 9:37AM ; [facility] Sexually active with 1 partners in the l ast year 03/03/2019 Last Documented On 9 9:37AM ; [facility] Social history unchanged 03/03/2019 Last Documented On 9 9:37AM ; [facility] Smoking status : Never smoker 03/03/2019 Last Documented On 9 9:37AM ; [facility] Procedures and Surgical History Surgical History Last Updated Surgical / procedural history finger sew n on 03/03/2019 Last Documented On 9 9:37AM ; [facility] History of surgery 07/26/2017 Last Documented On 8 8:32AM ; [facility] Medical History Includes: Medical History in patient's chart Description Last Updated No recent change in medical history 02/11 Last Documented On 9 9:37AM ; [facility] LMP: 12/28/2018 03/03/2019 Last Documented On 9 9:37AM ; [facility] Sexually active 03/03/2019 Last Documented On 9 9:37AM ; [facility] Contraception: paragard 04-09-18 019 Last Documented On 9 9:37AM ; [facility] History of Pap smear done 02/26/2018 Last Documented On 9 9:37AM ; [facility] Result: normal 03/03/2019 Last Documented On 9 9:37AM ; [facility] 1 04/09/2018 Last Documented On 8 9:39AM ; [facility] Para 1 04/09/2018 Last Documented On 8 9:39AM ; [facility] PRIMARY CARE PROVIDER : [place] 2015 Last Documented On 6 10:16AM ; [facility] History of Gardasil 2011 07/27/2013 Last Documented On 4 10:23AM ; [facility] Family History Includes: Family History in patient's chart Description Last Updated Family history unchanged 03/03/2019 Last Documented On 9 9:37AM ; [facility] Maternal history of diabetes mellitus mo m 03/03/2019 Last Documented On 9 9:37AM ; [facility] Paternal history of hypertension dad Last Documented On 9 9:37AM ; [facility] Paternal history of pure hypercholestero lemia father 03/03/2019 Last Documented On 9 9:37AM ; [facility] Family history of diabetes mellitus mom 05/01/2012 Last Documented On 2 11:32AM ; [facility] Family history of hypertension dad 05/01 Last Documented On 2 11:32AM ; [facility] Family history of Diabetes MOTHER 2009 Last Documented On 0 1:33PM ; [facility] Review of Systems Review of Systems not supported for this document type No Review of Systems Recorded Mental Status No Mental Status Recorded Functional Status No Functional Status Recorded Physical Exam Physical Exam not supported for this document type No Physical Exam Recorded Immunizations Includes: Immunizations in patient's chart Vaccine Dose # Date Site Reaction(s) Status Source HPV, (quadrivalent) Gardasil 1 12/18/2007 Complete (Reported) Patient Last Documented On 0 1:32PM ; [facility] HPV, (quadrivalent) Gardasil 2 02/17/2008 Complete (Reported) Patient Last Documented On 0 1:32PM ; [facility] HPV, (quadrivalent) Gardasil 3 06/18/2008 Complete (Reported) Patient Last Documented On 0 1:32PM ; [facility] Allergies Includes: Active, inactive, and resolved Allergies Substance Type Reaction Onset Date Resolved Date Statu s Suprax Allergy 12/07/2009 Active Last Documented On 9 8:14AM ; [facility] Imitrex Allergy Skin Rashes / Eruption of skin, Hives / Urticaria 07/27/2013 Active Last Documented On 9 8:14AM ; [facility] Insurance Includes: Active Insurance Policies No Insurance Coverage Recorded Guarantor Relationship Effective Dates Guarantor Ph one LUIZ HERNANDEZ [id number] Clinical Notes Includes: Signed Clinical Notes starting from 06/01/2022 No Clinical Notes Recorded
--- OUTSIDE RECORDS SUMMARY | 2024-06-16 12:13 | XMS_ITS | Clinical Summary ---
Author Organization [facility] Address [address] [place] [address] Phone Care Team Providers Care Scheduling Agent Name Role Phone MACO COX, DAQUAN Dow Unavailable [phone] CLARA COX, AZAEL Antony Primary Care Provider [phone] Reason for Visit and Chief Complaint WELL WOMAN EXAM Problems Includes: Problems addressed during this encounter and other active Problems All Visits Onset Date Resolved Date Provider Condition S tatus Vulvovaginitis Dianne Albicans 10/14/2012 NATIVIDAD PERRY RN [facility] Active Last Documented On 10/14/2012 9:11AM ; [facility] Note: Unchanged History of Allergic Rhinitis 05/01/2012 NATIVIDAD PERRY RN ASHLEY Active Last Documented On 05/01/2012 11:32AM ; [facility] Note: Unchanged - seasonal History of Depression 05/01/2012 NATIVIDAD PERRY RN ASHLEY Active Last Documented On 05/01/2012 11:32AM ; [facility] Note: Unchanged Female Pelvic Pain 12/07/2009 IMTIAZ EMERSON Active Last Documented On 12/07/2009 1:31PM ; [facility] Note: Unchanged Dysmenorrhea 12/07/2009 IMTIAZ EMERSON Active Last Documented On 12/07/2009 1:31PM ; [facility] Note: Unchanged Plan of Treatment No Plan of Treatment Recorded Assessments Includes: Assessments from this encounter No Assessments Recorded Medical Equipment - Implanted Devices Includes: Current Devices No Medical Equipment Recorded Medications Includes: Medications discussed during this encounter and other current Medications Current Medications (continue as prescribed) [facility] Ibuprofen 200MG Oral Tablet 09/11/2018 Provider: Diagnosis: PRN Last Documented On 9 8:14AM By MARIBEL PLUMMER ; [facility] Paragard Intrauterine Copper Intrauterine device 04/09 Provider: Diagnosis: Last Documented On 9 8:04AM By MARIBEL PLUMMER ; [facility] Medications Administered Includes: Administered Medications from this encounter No Administered Medications Recorded Results Includes: Results discussed during this encounter No Results Recorded For Specified Dates History of Present Illness Includes: History of Present Illness from this encounter No History of Present Illness Recorded Social History No Social History Recorded - Smoking Status Unknown Medical History Includes: Medical History addressed during this encounter No Medical History Recorded Family History Includes: Family History addressed during this encounter No Family History Recorded Review of Systems Includes: Review of Systems from this encounter No Review of Systems Recorded Mental Status Includes: Mental Status from this encounter No Mental Status Recorded Functional Status Includes: Functional Status from this encounter No Functional Status Recorded Physical Exam Includes: Physical Exam from this encounter No Physical Exam Recorded Allergies Includes: Active Allergies Substance Type Reaction Onset Date Resolved Date Statu s Suprax Allergy 12/07/2009 Active Last Documented On 9 8:14AM ; [facility] Imitrex Allergy Skin Rashes / Eruption of skin, Hives / Urticaria 07/27/2013 Active Last Documented On 9 8:14AM ; [facility] Insurance Includes: Active Insurance Policies No Insurance Coverage Recorded Guarantor Relationship Effective Dates Guarantor Ph one LUIZ HERNANDEZ [id number] Clinical Notes Includes: Clinical Notes from this encounter No Clinical Notes Recorded
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
--- OUTSIDE RECORDS SUMMARY | 2024-06-16 12:13 | XMS_ITS | Clinical Summary ---
Author Organization [facility] Address [address] [place] [address] Phone Care Team Providers Care Geoscience Professor Name Role Phone MACO COX, DAQUAN oDw Unavailable [phone] CLARA COX, AZAEL Antony Primary Care Provider [phone] Reason for Visit and Chief Complaint NO SHOW Problems Includes: Problems addressed during this encounter and other active Problems All Visits Onset Date Resolved Date Provider Condition S tatus Vulvovaginitis Dianne Albicans 10/14/2012 NATIVIDAD PERRY RN [facility] Active Last Documented On 10/14/2012 9:11AM ; [facility] Note: Unchanged History of Allergic Rhinitis 05/01/2012 NATIVIDAD PERRY RN [facility] Active Last Documented On 05/01/2012 11:32AM ; [facility] Note: Unchanged - seasonal History of Depression 05/01/2012 NATIVIDAD PERRY RN [facility] Active Last Documented On 05/01/2012 11:32AM ; [facility] Note: Unchanged Female Pelvic Pain 12/07/2009 IMTIAZ EMERSON Active Last Documented On 12/07/2009 1:31PM ; [facility] Note: Unchanged Dysmenorrhea 12/07/2009 IMTIAZ EMERSON Active Last Documented On 12/07/2009 1:31PM ; [facility] Note: Unchanged Plan of Treatment No Plan [...] 8:14AM By MARIBEL PLUMMER ; [facility] Paragard Intrauterine Copper Intrauterine device 04/09 Provider: Diagnosis: Last Documented On 9 8:04AM By MARIBEL PLUMMER ; [facility] Medications Administered Includes: Administered Medications from this [...] Documented On 9 8:14AM ; [facility] Imitrex Allergy Skin Rashes / Eruption of skin, Hives / Urticaria 07/27/2013 Active Last Documented On 9 8:14AM ; [facility] Encounters Encounter Provider Location Date Check-In Time Check-Out Time Diagnosis NO SHOW NATIVIDAD DOUGLAS [facility]- 04/20/2020 10:04AM 11:59PM Insurance Includes: Active Insurance Policies No Insurance Coverage Recorded Guarantor Relationship Effective Dates Guarantor Ph one LUIZ HERNANDEZ [id number] Clinical Notes Includes: Clinical Notes from this encounter No Clinical Notes Recorded
--- OUTSIDE RECORDS SUMMARY | 2024-06-16 12:13 | XMS_ITS | Clinical Summary ---
Author Organization [facility] Address [address] [place] [address] Phone Care Team Providers Care Consolidator Name Role Phone MACO COX, DAQUAN Dow Unavailable [phone] CLARA COX, AZAEL Antony Primary Care Provider [phone] Reason for Visit and Chief Complaint [Patient Encounter] Problems Includes: Problems addressed during this encounter and other active Problems All Visits Onset Date Resolved Date Provider Condition S tatus Vulvovaginitis Dianne Albicans 10/14/2012 NATIVIDAD PERRY RN [facility] Active Last Documented On 10/14/2012 9:11AM ; [facility] Note: Unchanged History of Allergic Rhinitis 05/01/2012 NATIVIDAD PERRY RN [facility] Active Last Documented On 05/01/2012 11:32AM ; [facility] Note: Unchanged - seasonal History of Depression 05/01/2012 NATIVIDAD PERRY RN [facility] Active Last Documented On 05/01/2012 11:32AM ; [facility] Note: Unchanged Female Pelvic Pain 12/07/2009 IMTIAZ EMERSON Active Last Documented On 12/07/2009 1:31PM ; [facility] Note: Unchanged Dysmenorrhea 12/07/2009 IMTIAZ EMERSON Active Last Documented On 12/07/2009 1:31PM ; [facility] Note: Unchanged Plan of Treatment No Plan [...] On 9 8:14AM By MARIBEL PLUMMER ; [facility] Paragard Intrauterine Copper Intrauterine device 04/09 Provider: Diagnosis: Last Documented On 9 8:04AM By MARIBEL PLUMMER ; [facility] Medications Administered Includes: Administered Medications from this [...] Active Last Documented On 9 8:14AM ; [facility] Imitrex Allergy Skin Rashes / Eruption of skin, Hives / Urticaria 07/27/2013 Active Last Documented On 9 8:14AM ; [facility] Encounters Encounter Provider Location Date Check-In Time Check- Out Time Diagnosis [Patient Encounter] NATIVIDAD PERRY RN [facility]- 0 10:52AM 11:59PM Insurance Includes: Active Insurance Policies No Insurance Coverage Recorded Guarantor Relationship Effective Dates Guarantor Ph one LUIZ HERNANDEZ [id number] Clinical Notes Includes: Clinical Notes from this encounter No Clinical Notes Recorded
--- OUTSIDE RECORDS SUMMARY | 2024-06-16 12:13 | XMS_ITS ---
Care Plan - [facility] Created on: June 16, 2024 LUIZ HERNANDEZ Parvez : 1995 Sex: Female Author Organization [facility] Address [address] [place] [address] Phone Care Team Providers Care Tissue Technologist Name Role Phone MACO COX, DAQUAN C Unavailable [phone] CLARA COX, AZAEL Antony Primary Care Provider [phone]
--- OUTSIDE RECORDS SUMMARY | 2024-06-16 12:13 | XMS_ITS | Clinical Summary ---
Author Organization [facility] Address [address] [place] [address] Phone Care Team Providers Care Digital Media Planner Name Role Phone MACO COX, DAQUAN Dow Unavailable [phone] CLARA COX, AZAEL Antony Primary Care Provider [phone] Reason for Visit and Chief Complaint ANNUAL MANAGER IMAGE EXAM Problems Includes: Problems addressed during this encounter and other active Problems All Visits Onset Date Resolved Date Provider Condition S tatus Vulvovaginitis Dianne Albicans 10/14/2012 NATIVIDAD PERRY RN [facility] Active Last Documented On 10/14/2012 9:11AM ; [facility] Note: Unchanged History of Allergic Rhinitis 05/01/2012 NATIVIDAD PERRY RN [facility] Active Last Documented On 05/01/2012 11:32AM ; [facility] Note: Unchanged - seasonal History of Depression 05/01/2012 NATIVIDAD PERRY RN [facility] Active Last Documented On 05/01/2012 11:32AM ; [facility] Note: Unchanged Female Pelvic Pain 12/07/2009 IMTIAZ EMERSON Active Last Documented On 12/07/2009 1:31PM ; [facility] Note: Unchanged Dysmenorrhea 12/07/2009 IMTIAZ EMERSON Active Last Documented On 12/07/2009 1:31PM ; [facility] Note: Unchanged Plan of Treatment No Plan [...] On 9 8:14AM By MARIBEL PLUMMER ; [facility] Paragard Intrauterine Copper Intrauterine device 04/09 Provider: Diagnosis: Last Documented On 9 8:04AM By MARIBEL PLUMMER ; [facility] Medications Administered Includes: Administered Medications from this [...] Active Last Documented On 9 8:14AM ; [facility] Imitrex Allergy Skin Rashes / Eruption of skin, Hives / Urticaria 07/27/2013 Active Last Documented On 9 8:14AM ; [facility] Insurance Includes: Active Insurance Policies No Insurance Coverage Recorded Guarantor Relationship Effective Dates Guarantor Ph one LUIZ HERNANDEZ [id number] Clinical Notes Includes: Clinical Notes from this encounter No Clinical Notes Recorded
--- OUTSIDE RECORDS SUMMARY | 2024-06-16 12:14 | XMS_ITS | Clinical Summary ---
Author Organization [facility] Address [address] [place] [address] Phone Care Team Providers Care Probation Agent Name Role Phone MACO COX, DAQUAN Dow Unavailable [phone] CLARA COX, AZAEL Antony Primary Care Provider [phone] Reason for Visit and Chief Complaint RX ISSUE/REFILL Problems Includes: Problems addressed during this encounter and other active Problems All Visits Onset Date Resolved Date Provider Condition S tatus Vulvovaginitis Dianne Albicans 10/14/2012 NATIVIDAD PERRY RN ASHLEY Active Last Documented On 10/14/2012 9:11AM ; [facility] Note: Unchanged History of Allergic Rhinitis 05/01/2012 NATIVIDAD PERRY RN ASHLEY Active Last Documented On 05/01/2012 11:32AM ; [facility] Note: Unchanged - seasonal History of Depression 05/01/2012 NATIVIDAD PERRY RN ASHLEY Active Last Documented On 05/01/2012 11:32AM ; [facility] Note: Unchanged Female Pelvic Pain 12/07/2009 IMTIAZ EMERSON Active Last Documented On 12/07/2009 1:31PM ; [facility] Note: Unchanged Dysmenorrhea 12/07/2009 IMTIAZ EMERSON Active Last Documented On 12/07/2009 1:31PM ; [facility] Note: Unchanged Plan of Treatment No Plan of Treatment Recorded Assessments Includes: Assessments from this encounter No Assessments Recorded Medical Equipment - Implanted Devices Includes: Current Devices No Medical Equipment Recorded Medications Includes: Medications discussed during this encounter and other current Medications New / Renewed during this visit NATIVIDAD PERRY RN ASHLEY BC on 01/14/2020 Fluconazole 150 MG Oral Tablet Provider: NATIVIDAD PERRY RN Brannon [facility] 2 day supply: 2 tablet, 0 refills Diagnosis: Acute vaginitis as directed take 1 tablet to day and repeat in 3 days Pharmacy: [address], [address] - Last Documented On 0 1:09PM By NATIVIDAD RODRIGUEZ ; [facility] Current Medications (continue as prescribed) [facility] Ibuprofen 200MG Oral Tablet 09/11/2018 Provider: Diagnosis: PRN Last Documented On 9 8:14AM By MARIBEL PLUMMER ; [facility] Paragard Intrauterine Copper Intrauterine device 04/09 Provider: Diagnosis: Last Documented On 9 8:04AM By MARIBEL PLUMMER ; [facility] Past Medications on file Citalopram Hydrobromide 20 MG Oral Tablet 12/28/2019 - 03/27/2020 Provider: NATIVIDAD DOUGLAS Diagnosis: Major depressive disorder, recurrent, unspecified One tablet daily Last Documented On 0 1:43PM By NATIVIDAD RODRIGUEZ ; [facility] Fluconazole 150 MG Oral Tablet 03/03/2019 - 03/06/2019 Provider: NATIVIDAD DOUGLAS Diagnosis: Candidiasis of v ulva and vagina TAKE 1 TAB today and repeat in 3 days Last Documented On 9 9:11AM By NATIVIDAD RODRIGUEZ ; [facility] Clindamycin HCl 300MG Oral Capsule 09/11/2018 - 09/18/2018 Provider: NATIVIDAD ROLAND Diagnosis: Acute vaginitis One tablet twice a day Last Documented On 9 8:53AM By NATIVIDAD RODRIGUEZ ; [facility] Nitrofurantoin Monohyd Macro 100MG Oral Capsule 11/11/2017 - 11/18/2017 Provider: NATIVIDAD ROLAND Diagnosis: Hematuria, unspe cified One tablet twice a day Last Documented On 8 4:13PM By NATIVIDAD RODIRGUEZ ; [facility] Amoxicillin 500MG Oral Capsule 08/15/2017 - 08/22/2017 Provider: NATIVIDAD ROLAND Diagnosis: Acute vaginitis One tablet three times a day TAKE DIRECTED WITH FOOD Last Documented On 8 2:27PM By NATIVIDAD RODRIGUEZ ; [facility] Terconazole 80MG Vaginal Suppository 08/12/2017 - 08/15/2017 Provider: NATIVIDAD ROLAND Diagnosis: Candidiasis of v ulva and vagina as directed ONE SUPP IN VAGI NA EVERY NIGHT X 3 Last Documented On 8 8:29AM By NATIVIDAD RODRIGUEZ ; [facility] PNV-Select 27-0.6-0.4MG Oral Tablet 06/20/2017 - 06/15/2018 Provider: NATIVIDAD DOUGLAS BC Diagnosis: Encounter for test, result positive 1 tablet every morning Last Documented On 8 8:30AM By NATIVIDAD RODRIGUEZ ; [facility] Fluconazole 150MG Oral Tablet 01/09/2017 - 01/11/2017 Provider: NATIVIDAD DOUGLAS BC Diagnosis: Candidiasis of v ulva and vagina One tablet today and repeat in 3 days Last Documented On 7 1:43PM By NATIVIDAD RODRIGUEZ ; [facility] MonoNessa 0.25-35MG-MCG Oral Tablet 12/10/2016 - 01/07/2017 Provider: NATIVIDAD DOUGLAS BC Diagnosis: Encounter for surveillance of contraceptive pills *1 dly - One tablet daily On e tablet daily TAKE TAB DAILY AT THE SAME TIME W/FOOD Last Documented On 7 3:22PM By NATIVIDAD RODRIGUEZ ; [facility] MonoNessa 0.25-35 MG-MCG Tablet 12/14/2015 - 01/11/2016 Provider: NATIVIDAD DOUGLAS BC Diagnosis: One tablet daily Last Documented On 6 11:58AM By NATIVIDAD RODRIGUEZ ; [facility] Sprintec 28 0.25-35 MG-MCG Tablet 09/09/2015 - 11/04/2015 Provider: NATIVIDAD DOUGLAS BC Diagnosis: One tablet daily Last Documented On 6 3:13PM By NATIVIDAD RODRIGUEZ ; [facility] Nystatin 794143 UNIT/GM EX CREA 11/11/2012 - 11/18/2012 Provider: NATIVIDAD DOUGLAS BC Diagnosis: CANDIDAL VULVOVA GINITIS APPLY TO AREAS 3 TIMES A DAY DIRECTED PLEASE DISPENSE 30 GM TUBE Last Documented On 3 1:48PM By NATIVIDAD OLIVAS ; [facility] Amoxicillin 500 MG OR CAPS 10/17/2012 - 10/24/2012 Pro vider: NATIVIDAD PERRY RN ASHLEY Diagnosis: VAGINITIS NOS use as directed w/food Last Documented On 3 2:37PM By NATIVIDAD OLIVAS ; [facility] Terconazole 0.4% VA CREA 10/14/2012 - 11/04/2012 Provider: NATIVIDAD PERRY RN ASHLEY Diagnosis: CANDIDAL VULVOVA GINITIS one kenneth in vagina every nigh t x 7 apply bid to perineum Last Documented On 3 9:04AM By NATIVIDAD OLIVAS ; [facility] Ortho-Cyclen (28) 0.25-35 MG-MCG OR TABS 03/27/2012 - 04/24/2012 Provider: DAQUAN DEWEY MD Diagnosis: Excessive Menstr uation Last Documented On 03/27/2012 1:42PM By DAQUAN DEWEY MD ; [facility] Medications Administered Includes: Administered Medications from this encounter No Administered Medications Recorded Results Includes: Results discussed during this encounter No Results Recorded For Specified Dates History of Present Illness Includes: History of Present Illness from this encounter No History of Present Illness Recorded Social History No Social History Recorded - Smoking Status Unknown Procedures and Surgical History Surgical History Last Updated Surgical / procedural history finger sew n on 03/03/2019 Last Documented On 0 12:48PM ; [facility] History of surgery tip of finger 018 Last Documented On 0 12:48PM ; [facility] Medical History Includes: Medical History addressed during this encounter Description Last Updated No recent change in medical history 02/11 Last Documented On 0 12:48PM ; [facility] LMP: 12/28/2018 03/03/2019 Last Documented On 0 12:48PM ; [facility] Sexually active 03/03/2019 Last Documented On 0 12:48PM ; [facility] Contraception: paragard 04-09-18 019 Last Documented On 0 12:48PM ; [facility] History of Pap smear done 02/26/2018 Last Documented On 0 12:48PM ; [facility] Result: normal 03/03/2019 Last Documented On 0 12:48PM ; [facility] 1 04/09/2018 Last Documented On 0 12:48PM ; [facility] Para 1 04/09/2018 Last Documented On 0 12:48PM ; [facility] PRIMARY CARE PROVIDER : Clara 2015 Last Documented On 0 12:48PM ; [facility] History of Gardasil 2011 07/27/2013 Last Documented On 0 12:48PM ; [facility] Family History Includes: Family History addressed during this encounter Description Last Updated Family history unchanged 03/03/2019 Last Documented On 0 12:48PM ; [facility] Maternal history of diabetes mellitus mo m 03/03/2019 Last Documented On 0 12:48PM ; [facility] Paternal history of hypertension dad Last Documented On 0 12:48PM ; [facility] Paternal history of pure hypercholestero lemia father 03/03/2019 Last Documented On 0 12:48PM ; [facility] Family history of diabetes mellitus mom 05/01/2012 Last Documented On 0 12:56PM ; [facility] Family history of hypertension dad 05/01 Last Documented On 0 12:48PM ; [facility] Family history of Diabetes MOTHER 2009 Last Documented On 0 12:48PM ; [facility] Review of Systems Includes: Review of Systems [...] Active Last Documented On 9 8:14AM ; [facility] Imitrex Allergy Skin Rashes / Eruption of skin, Hives / Urticaria 07/27/2013 Active Last Documented On 9 8:14AM ; [facility] Encounters Encounter Provider Location Date Check-In Time Check-Out Time Diagnosis RX ISSUE/REFILL NATIVIDAD PERRY RN [facility] 01/14/2020 12:48PM 11:59PM Insurance Includes: Active Insurance Policies No Insurance Coverage Recorded Guarantor Relationship Effective Dates Guarantor Ph one LUIZ HERNANDEZ [facility] [id number] Clinical Notes Includes: Clinical Notes from this encounter No Clinical Notes Recorded
[2024-06-16 12:49] VITALS: BP 162/102; PULSE 102; RESP 16; TEMP 36.6; O2SAT 99
--- NOTE | 2024-06-16 13:01 | ED.SOB ---
HPI - SOB/Dyspnea General Chief Complaint: Shortness of Breath/Dyspnea Stated Complaint: Elevated BP, SHOB, Dizziness Time Seen by Provider: 06/16/24 12:40 Focused HPI: Patient is a 28-year-old female who presents to the ER with complaints of shortness of breath, dizziness, and chest tightness. She reports her blood pressure has been also elevated. Patient denies any other relevant medical history. She denies any current back pain, wheezing, recent fevers. GENERAL: Ill-appearing, well-nourished, and in mild distress d/t anxiety. HEAD: Normocephalic, atraumatic. CHEST: Clear to auscultation. ?No respiratory distress. HEART: Tachycardia, regular rhythm. NEURO: ?Alert and oriented x3. Patient screened in triage and initial orders placed.? ?Additional care and disposition to be based upon?diagnostic testing and treatment. Related Data Allergies Allergy/AdvReac Type Severity Reaction Status Date / Time No Known Allergies Allergy Verified 12/09/23 08:56 [facility] Past Medical History Medical History (Updated 06/17/24 @ 19:00 by Carli Goldstein APRN) History of live Migraine Headache Depression Anxiety Surgical History Surgical History (Updated 12/09/23 @ 09:15 by Darrell Guadarrama CMA) H/O tubal ligation Family History Family History (Updated 12/09/23 @ 09:16 by Darrell Guadarrama CMA) Mother Anxiety Depression Diabetes mellitus Father Hypertension Social History Social History Smoking status: Never smoker Course Vital Signs Vital signs: Vital Signs Temperature 36.6 C 06/16/24 12:49 Pulse Rate 102 H 06/16/24 12:49 Respiratory Rate 16 06/16/24 12:49 Blood Pressure 162/102 H 06/16/24 12:49 Pulse Oximetry 99 06/16/24 12:49 Temperature 36.6 C 06/16/24 12:49 Pulse Rate 102 H 06/16/24 12:49 Respiratory Rate 16 06/16/24 12:49 Blood Pressure 162/102 H 06/16/24 12:49 Pulse Oximetry 99 06/16/24 12:49 MDM - SOB/Dyspnea Lab Data 06/16/24 12:55 06/16/24 12:55 Labs: Lab Results 06/16/24 06/16/2425 Range/Units 12:55 13:10 13:13 WBC 10.0 (4.5-10.0) K/mm3 RBC 5.26 (4.2-5.4) M/mm3 Hgb 14.9 (12.0-15.0) g/dL Hct 44.3 (37.0-47.0) % MCV 84.2 (80-100) fl MCH 28.3 (26-34) pg MCHC 33.6 (32-36) g/dl RDW 12.5 (11.5-14.5) % Plt Count 339 (150-375) k/mm3 MPV 10.9 H (7.4-10.4) fl Immature Gran % (Auto) 0.3 (0-0.5) % Neut % (Auto) 84.9 H (45.5-73.1) % Lymph % (Auto) 10.8 L (18.3-44.2) % [place] % (Auto) 3.4 (2.6-8.5) % Eos % (Auto) 0.4 (0-4.4) % Baso % (Auto) 0.2 (0.2-1.2) % Lymph # (Auto) 1.08 (0.9-3.2) K/mm3 [place] # (Auto) 0.3 (0.1-0.6) K/mm3 Eos # (Auto) 0.0 (0-0.3) K/mm3 Baso # (Auto) 0.0 (0.0-0.1) K/mm3 Abs Immat Gran (auto) 0.03 (0.00-0.031) K/mm3 Absolute Neuts (auto) 8.5 H (1.3-6.7) K/mm3 Absolute Nucleated RBC 0.000 (0.0-0.012) K/mm3 Nucleated RBC % 0.0 (0.0-0.2) % Sodium 140 (137-145) mmol/L Potassium 3.8 (3.4-5.0) mmol/L Chloride 101 (98-107) mmol/L Carbon Dioxide 24 (22-30) mmol/L Anion Gap 15 H (4-12) mmol/L BUN 12 (7-17) mg/dL Creatinine 0.54 L (0.7-1.0) mg/dL Estim Creat Clear Calc 126 ml/min Estimated GFR > 60 (59 - ) Glucose 95 (65-110) mg/dL Calcium 10.2 (8.4-10.2) mg/dL Urine Color Yellow (Yellow) Urine Appearance Clear (Clear) Urine pH 7.0 (5.0-9.0) Ur Specific [place] 1.004 (1.001-1.035) Urine Protein Negative (Negative) mg/dL Urine Glucose (UA) Negative (Negative) mg/dL Urine Ketones Negative (Negative) mg/dL Ur Blood (Man) Negative (Negative) Urine Nitrate Negative (Negative) Urine Bilirubin Negative (Negative) Urine Urobilinogen 0.2 (<2.0) mg/dL Leukocyte Esterase Rfl Negative (Negative) HUGO/UL POC Urine HCG, Qual Negative (Negative) Discharge Plan Discharge Clinical Impression: Anxiety Patient Disposition: Elopement After Seen by Prov Condition: Stable Patient Language: Australian Prescriptions: No Action (DME) Auvelity See Rx Instructions .ROUTE .MEDSUPPLY Qty: 1 0RF Rx Instructions: Unknown dose, per psychiatry (DME) methylphenidate See Rx Instructions .ROUTE .MEDSUPPLY Qty: 1 0RF Rx Instructions: Unknown dose, per psychiatry (DME) Hydroxyzine See Rx Instructions .ROUTE .MEDSUPPLY Qty: 1 0RF Rx Instructions: Unknown dose, per psychiatry (DME) progesterone See Rx Instructions .ROUTE .MEDSUPPLY Qty: 1 0RF Rx Instructions: Unknown dose, per retail loss prevention investigator Follow-up/Referrals: Vonda Yeager MD [Primary Care Provider] -
[2024-06-16 13:12] LABS: Basophils Percent Auto 0.2 % (0.2-1.2); Eosinophils Percent Auto 0.4 % (0-4.4); Hematocrit 44.3 % (37.0-47.0); Hemoglobin 14.9 g/dL (12.0-15.0); Immature Granulocyte Absolute 0.03 K/mm3 (0.00-0.031); Immature Granulocyte Percent A 0.3 % (0-0.5); Lymphocytes Absolute Auto 1.08 K/mm3 (0.9-3.2); Lymphocytes Percent Auto 10.8 % (18.3-44.2); Mean Corpuscular HGB Conc 33.6 g/dl (32-36); Mean Corpuscular Hemoglobin 28.3 pg (26-34); Mean Corpuscular Volume 84.2 fl (80-100); Mean Platelet Volume 10.9 fl (7.4-10.4); Monocytes Absolute Auto 0.3 K/mm3 (0.1-0.6); Monocytes Percent Auto 3.4 % (2.6-8.5); Neutrophils Absolute Auto 8.5 K/mm3 (1.3-6.7); Neutrophils Percent Auto 84.9 % (45.5-73.1); Platelet Count Result 339 k/mm3 (150-375); Red Blood Count 5.26 M/mm3 (4.2-5.4); Red Cell Distribution Width 12.5 % (11.5-14.5)
[2024-06-16 13:15] LABS: BEDSIDEPREGUCG Negative (Negative)
[2024-06-16 13:21] LABS: Anion Gap 15 mmol/L (4-12); Blood Urea Nitrogen 12 mg/dL (7-17); Calcium 10.2 mg/dL (8.4-10.2); Carbon Dioxide 24 mmol/L (22-30); Chloride 101 mmol/L (98-107); Estimated CRCL calculation 126 ml/min; Estimated Glomerular Filt Rate > 60; Glucose 95 mg/dL (65-110); Potassium 3.8 mmol/L (3.4-5.0); Sodium 140 mmol/L (137-145)
[2024-06-16 13:21] LABS: Add Urine Microscopic? NO; Appearance Urine Clear (Clear); Bilirubin Urine Negative (Negative); Blood Urine Negative (Negative); Color Urine Yellow (Yellow); Glucose Urine UA Negative (Negative); Ketones Urine Negative (Negative); Leukocyte Esterase Ur Negative LEU/UL (Negative); Nitrate Urine Negative (Negative); Protein Urine Negative (Negative); Specific Grav Ur 1.004 (1.001-1.035); Urobilinogen Urine 0.2 mg/dL (<2.0)
--- OUTSIDE RECORDS SUMMARY | 2024-06-16 17:25 | XMS_ITS ---
Care Plan - [facility] Created on: June 16, 2024 LUIZ HERNANDEZ Parvez : 1995 Sex: Female Author Organization [facility] Address [address] [place] [address] Phone Care Team Providers Care Apns Name Role Phone MACO COX, DAQUAN C Unavailable [phone] CLARA COX, AZAEL Antony Primary Care Provider [phone]
--- OUTSIDE RECORDS SUMMARY | 2024-06-16 17:25 | XMS_ITS | Clinical Summary ---
Author Organization [facility] Address [address] [place] [address] Phone Care Team Providers Care School Bus Dispatcher Name Role Phone MACO COX, DAQUAN Dow Unavailable [phone] CLARA COX, AZAEL Antony Primary Care Provider [phone] Reason for Visit and Chief Complaint WELL WOMAN EXAM Problems Includes: Problems addressed during this encounter and other active Problems All Visits Onset Date Resolved Date Provider Condition S tatus Vulvovaginitis Dianne Albicans 10/14/2012 NATIVIDAD PERRY RN [facility] Active Last Documented On 10/14/2012 9:11AM ; [facility] Note: Unchanged History of Allergic Rhinitis 05/01/2012 NATIVIDAD PERRY RN ASHLEY Active Last Documented On 05/01/2012 11:32AM ; [facility] Note: Unchanged - seasonal History of Depression 05/01/2012 NATIVIDAD PERRY RN ASHLEY Active Last Documented On 05/01/2012 11:32AM ; [facility] Note: Unchanged Female Pelvic Pain 12/07/2009 IMTIAZ EMERSON Active Last Documented On 12/07/2009 1:31PM ; [facility] Note: Unchanged Dysmenorrhea 12/07/2009 IMTIAZ EMERSON Active Last Documented On 12/07/2009 1:31PM ; [facility] Note: Unchanged Plan of Treatment [...] On 9 8:14AM By MARIBEL PLUMMER ; [facility] Paragard Intrauterine Copper Intrauterine device 04/09 Provider: Diagnosis: Last Documented On 9 8:04AM By MARIBEL PLUMMER ; [facility] Medications Administered Includes: Administered Medications [...] Active Last Documented On 9 8:14AM ; [facility] Imitrex Allergy Skin Rashes / Eruption of skin, Hives / Urticaria 07/27/2013 Active Last Documented On 9 8:14AM ; [facility] Insurance Includes: Active Insurance Policies No Insurance Coverage Recorded Guarantor Relationship Effective Dates Guarantor Ph one LUIZ HERNANDEZ [id number] Clinical Notes Includes: Clinical Notes from this encounter No Clinical Notes Recorded
--- OUTSIDE RECORDS SUMMARY | 2024-06-16 17:25 | XMS_ITS | Clinical Summary ---
Author Organization [facility] Address [address] [place] [address] Phone Care Team Providers Care Lead Generation Marketing Manager Name Role Phone MACO COX, DAQUAN Dow Unavailable [phone] CLARA COX, AZAEL Antony Primary Care Provider [phone] Reason for Visit and Chief Complaint NO SHOW Problems Includes: Problems addressed during this encounter and other active Problems All Visits Onset Date Resolved Date Provider Condition S tatus Vulvovaginitis Dianne Albicans 10/14/2012 NATIVIDAD PERRY RN [facility] Active Last Documented On 10/14/2012 9:11AM ; [facility] Note: Unchanged History of Allergic Rhinitis 05/01/2012 NATIVIDAD PERRY RN ASHLEY Active Last Documented On 05/01/2012 11:32AM ; [facility] Note: Unchanged - seasonal History of Depression 05/01/2012 NATIIVDAD PERRY RN ASHLEY Active Last Documented On 05/01/2012 11:32AM ; [facility] Note: Unchanged Female Pelvic Pain 12/07/2009 IMTIAZ EMERSON Active Last Documented On 12/07/2009 1:31PM ; [facility] Note: Unchanged Dysmenorrhea 12/07/2009 IMTIAZ EMERSON Active Last Documented On 12/07/2009 1:31PM ; [facility] Note: Unchanged Plan of Treatment No [...] On 9 8:14AM By MARIBEL PLUMMER ; [facility] Paragard Intrauterine Copper Intrauterine device 04/09 Provider: Diagnosis: Last Documented On 9 8:04AM By MARIBEL PLUMMER ; [facility] Medications Administered Includes: Administered Medications from [...] Active Last Documented On 9 8:14AM ; [facility] Imitrex Allergy Skin Rashes / Eruption of skin, Hives / Urticaria 07/27/2013 Active Last Documented On 9 8:14AM ; [facility] Encounters Encounter Provider Location Date Check-In Time Check-Out Time Diagnosis NO SHOW NATIVIDAD DOUGLAS [facility]- 04/20/2020 10:04AM 11:59PM Insurance Includes: Active Insurance Policies No Insurance Coverage Recorded Guarantor Relationship Effective Dates Guarantor Ph one LUIZ HERNANDEZ [id number] Clinical Notes Includes: Clinical Notes from this encounter No Clinical Notes Recorded
--- OUTSIDE RECORDS SUMMARY | 2024-06-16 17:25 | XMS_ITS | Clinical Summary ---
Author Organization [facility] Address [address] [place] [address] Phone Care Team Providers Care Assistant Front Office Manager Name Role Phone Unavailable Primary Care Provider [...] Comments Blood Pressure 122/84 06/27/2015 7:00 AM ASH CONVEYOR OPERATOR Pulse 90 06/27/2015 7:00 AM ASH CONVEYOR OPERATOR Temperature 36.6 ??C (97.9 ??F) 06/27/2015 7:00 AM CS T Respiratory Rate - - Oxygen Saturation 91% 06/27/2015 7:00 AM ASH CONVEYOR OPERATOR Inhaled Oxygen Concentration - - Weight 69.3 kg (152 lb 11.2 oz) 06/27/2015 7:00 AM ASH CONVEYOR OPERATOR Height 160 cm (5' 3 ) 06/27/2015 7:00 AM ASH CONVEYOR OPERATOR Body Mass Index 27.05 06/27/2015 7:00 AM ASH CONVEYOR OPERATOR Plan of Treatment Health Maintenance Due Date [...] patient's age to complete this topic Insurance [email or web address]
--- OUTSIDE RECORDS SUMMARY | 2024-06-16 17:25 | XMS_ITS | Clinical Summary ---
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 Problems Includes: Problems addressed during this encounter and other active Problems All Visits Onset Date Resolved Date Provider Condition S tatus Vulvovaginitis Dianne Albicans 10/14/2012 NATIVIDAD PERRY RN [facility] Active Last Documented On 10/14/2012 9:11AM ; [facility] Note: Unchanged History of Allergic Rhinitis 05/01/2012 NATIVIDAD PERRY RN [facility] Active Last Documented On 05/01/2012 11:32AM ; [facility] Note: Unchanged - seasonal History of Depression 05/01/2012 NATIVIDAD PERRY RN [facility] Active Last Documented On 05/01/2012 11:32AM ; [facility] Note: Unchanged Female Pelvic Pain 12/07/2009 IMTIAZ EMERSON Active Last Documented On 12/07/2009 1:31PM ; [facility] Note: Unchanged Dysmenorrhea 12/07/2009 IMTIAZ EMERSON Active Last Documented On 12/07/2009 1:31PM ; [facility] Note: Unchanged Plan of Treatment No [...] 8:14AM By MARIBEL PLUMMER ; [facility] Paragard Intrauterine Copper Intrauterine device 04/09 Provider: Diagnosis: Last Documented On 9 8:04AM By MARIBEL PLUMMER ; [facility] Medications Administered Includes: Administered Medications from [...] Active Last Documented On 9 8:14AM ; [facility] Imitrex Allergy Skin Rashes / Eruption of skin, Hives / Urticaria 07/27/2013 Active Last Documented On 9 8:14AM ; [facility] Insurance Includes: Active Insurance Policies No Insurance Coverage Recorded Guarantor Relationship Effective Dates Guarantor Ph one LUIZ HERNANDEZ [id number] Clinical Notes Includes: Clinical Notes from this encounter No Clinical Notes Recorded
--- OUTSIDE RECORDS SUMMARY | 2024-06-16 17:26 | XMS_ITS | Referral Summary ---
Author Organization [facility] Address [address] [place] [address] Care Team Providers Care Air Director Name Role Phone Ely Wood MD Unavailable [phone] No, Physician Primary Care Provider [phone] Encounters Date Type Department Care Team Description 03/16/2024 9:30 AM DIRECTOR INFORMATION Office Visit [facility] at [address] [address] Ely Wood MD DUB (dysfunctional [...] 11/11/2023 Assessment & Plan (03/16/2024 10:07 AM DIRECTOR INFORMATION): Better. DUB (dysfunctional uterine bleeding) 11/14/2022 Assessment & Plan (03/16/2024 10:07 AM DIRECTOR INFORMATION): Will continue on with the prometrium. Assessment [...] medications. Assessment & Plan (05/16/2022 10:35 AM DIRECTOR INFORMATION): Stable. Cont. Current prescription medications. Assessment & [...] 10/2021 Assessment & Plan (03/16/2024 10:07 AM DIRECTOR INFORMATION): Normal in November Will repeat in November 2024 Assessment & Plan (11/11/2023 2:29 PM CDT): Pap repeated today Well woman exam 11/10/2021 Overview (11/11/2023): Lab: Pap:ascus with negative HPV 10/2022 No recent labs. Arnaldo: Colonoscopy: BMD: Gardasil:07/13 Assessment & Plan (03/16/2024 10:08 AM DIRECTOR INFORMATION): Due in November. Assessment & Plan (11/11/2023 [...] citalopram. Assessment & Plan (05/16/2022 10:36 AM DIRECTOR INFORMATION): Stable, however citalopram was increased due to worsening anxiety. Assessment & Plan (01/09/2022 11:15 AM CDT): Sent new Rx for increased dose of citalopram. Patient advised not to change medications on her own. Assessment & Plan (07/21/2021 8:15 PM DIRECTOR INFORMATION): Clinically improved, continue current prescription medications. Assessment & Plan (06/11/2021 11:56 PM DIRECTOR INFORMATION): Re-start Citalopram, referred to psychiatry. Call 911 [...] citalopram. Assessment & Plan (05/16/2022 10:36 AM DIRECTOR INFORMATION): Worsening, increase Citalopram 20 mg up to 40 mg daily. Encouraged patient to see psychiatry and CBT. Assessment & Plan (01/09/2022 11:13 AM CDT): New prescription written for higher dose of citalopram. Patient advised not to change her medications without discussing with primary care physician 1st. Assessment & Plan (06/11/2021 11:56 PM DIRECTOR INFORMATION): Re-start Citalopram, referred to psychiatry. Call 911 [...] brain. Assessment & Plan (06/11/2021 11:55 PM DIRECTOR INFORMATION): Referred to psychiatry for further eval/mgmt. B12 [...] (11/03/2021): Added automatically from request for surgery [id number] Assessment & Plan (01/30/2022 9:58 AM CDT): [...] on file Legal Sex Female 1:41 AM DIRECTOR INFORMATION Gender Identity Female 08/09/2022 10:17 AM CDT Sexual Orientation Something else 08/09/2022 10 :17 AM CDT Last Filed Vital Signs Vital Sign Reading Time Taken Comments Blood Pressure 116/74 03/16/2024 9:28 AM DIRECTOR INFORMATION Pulse 95 10/31/2023 4:31 PM CDT Temperature 36.9 ??C (98.4 ??F) 10/31/2023 4:31 PM CD T Respiratory Rate 17 10/31/2023 4:31 PM CDT Oxygen Saturation 97% 10/31/2023 4:31 PM CDT Inhaled Oxygen Concentration - - Weight 74.8 kg (165 lb) 03/16/2024 9:28 AM DIRECTOR INFORMATION Height 160 cm (5' 3 ) 11/11/2023 [...] THIS SPECIMEN WAS RESCREENED PART OF OUR [employer] PROGRAM. Specimen adequacy: Comment [facility] - 01 [...] PM CDT Performed at: ??01 - [facility] [address] ??[id number] Damage Assessor: Beverly Fermin MD, Phone: ??[phone] Performed at: ??02 - [facility] [address], [place] ??[id number] Damage Assessor: Beverly Fermin MD, Phone: ??[phone] Specimen Comment: [id number] Specimen Comment: No. of containers..01 ThinPrep Vial us Ely Wood MD LAB CYTOLOGY ORDERA BLES Final Result Performing Organization Address City/[facility] Co de Phone Number [facility] - 01 LAB BRIAN 02 * Hepatitis C antibody (11/01/2021 2:55 PM CDT) Hep C Ab Nonreactive Nonreactive MARIM[facility] BENJAMIN ([place]) Comment: Interpretive Data Nonreactive: Antibodies to HCV [...] last revised on 2019. Testing performed by: [facility], [address] [place] [address], [place]., [address] Blood 11/01/2021 2:55 PM CDT 11/02/2021 9:05 AM CDT us Ely Wood MD LAB MICROBI OLOGY - GENERAL ORDERABLES Edited Result - Final Performing Organization Address City/[facility]/ZIP Co de Phone Number MARIMAR SOURAV ([place]) 1 [facility] Department [place] [address] from Last 3 Months or Most Recently Relevant to Health Maintenance Insurance [facility] PLUS [facility] PLUS [facility] [id number] [facility] CHO[facility] PLUS Advance Directives For more information, please contact: [phone] * Full Code (Latest Code Status on File) Date Activated Date Inactivated Comments 01/15/2018 7:10 AM 01/17/2018 6:05 PM * Full Code Date Activated Date Inactivated Comments 01/14/2018 12:19 AM 01/15/2018 7:10 AM * Full Code Date Activated Date Inactivated Comments 01/08/2018 4:29 PM 01/14/2018 12:19 AM Full CPR in case of cardiopulmonary arrest Care Teams Air Director Relationship Specialty Start Date End Date No, Physician PCP - General 03/16/24 Ely Wood MD Consulting Physician Obstetrics and Gynecology 07/21/21
--- OUTSIDE RECORDS SUMMARY | 2024-06-16 17:26 | XMS_ITS | Clinical Summary ---
Author Organization [facility] Address [address] [place] [address] Phone Care Team Providers Care Hardwood Faller Name Role Phone MACO COX, DAQUAN Dow Unavailable [phone] CLARA COX, AZAEL Antony Primary Care Provider [phone] Reason for Visit and Chief Complaint RX ISSUE/REFILL Problems Includes: Problems addressed during this encounter and other active Problems All Visits Onset Date Resolved Date Provider Condition S tatus Vulvovaginitis Dianne Albicans 10/14/2012 NATIVIDAD PERRY RN ASHLEY Active Last Documented On 10/14/2012 9:11AM ; [facility] Note: Unchanged History of Allergic Rhinitis 05/01/2012 NATIVIDAD PERRY RN ASHLEY Active Last Documented On 05/01/2012 11:32AM ; [facility] Note: Unchanged - seasonal History of Depression 05/01/2012 NATIVIDAD PERRY RN ASHLEY Active Last Documented On 05/01/2012 11:32AM ; [facility] Note: Unchanged Female Pelvic Pain 12/07/2009 IMTIAZ EMERSON Active Last Documented On 12/07/2009 1:31PM ; [facility] Note: Unchanged Dysmenorrhea 12/07/2009 IMTIAZ EMERSON Active Last Documented On 12/07/2009 1:31PM ; [facility] Note: Unchanged Plan of Treatment [...] Oral Tablet Provider: NATIVIDAD PERRY RN Brannon [facility] 2 day supply: 2 tablet, 0 refills Diagnosis: Acute vaginitis as directed take 1 tablet to day and repeat in 3 days Pharmacy: [address], [address] - Last Documented On 0 1:09PM By NATIVIDAD RODRIGUEZ ; [facility] Current Medications (continue as prescribed) [facility] Ibuprofen 200MG Oral Tablet 09/11/2018 Provider: Diagnosis: PRN Last Documented On 9 8:14AM By MARIBEL PLUMMER ; [facility] Paragard Intrauterine Copper Intrauterine device 04/09 Provider: Diagnosis: Last Documented On 9 8:04AM By MARIBEL PLUMMER ; [facility] Past Medications on file Citalopram Hydrobromide 20 MG Oral Tablet 12/28/2019 - 03/27/2020 Provider: NATIVIDAD DOUGLAS Diagnosis: Major depressive disorder, recurrent, unspecified One tablet daily Last Documented On 0 1:43PM By NATIVIDAD RODRIGUEZ ; [facility] Fluconazole 150 MG Oral Tablet 03/03/2019 - 03/06/2019 Provider: NATIVIDAD DOUGLAS Diagnosis: Candidiasis of v ulva and vagina TAKE 1 TAB today and repeat in 3 days Last Documented On 9 9:11AM By NATIVIDAD RODRIGUEZ ; [facility] Clindamycin HCl 300MG Oral Capsule 09/11/2018 - 09/18/2018 Provider: NATIVIDAD ROLAND Diagnosis: Acute vaginitis One tablet twice a day Last Documented On 9 8:53AM By NATIVIDAD RODRIGUEZ ; [facility] Nitrofurantoin Monohyd Macro 100MG Oral Capsule 11/11/2017 - 11/18/2017 Provider: NATIVIDAD ROLAND Diagnosis: Hematuria, unspe cified One tablet twice a day Last Documented On 8 4:13PM By NATIVIDAD RODRIGUEZ ; [facility] Amoxicillin 500MG Oral Capsule 08/15/2017 - 08/22/2017 Provider: NATIVIDAD ROLAND Diagnosis: Acute vaginitis One tablet three times a day TAKE DIRECTED WITH FOOD Last Documented On 8 2:27PM By NATIVIDAD RODRIGUEZ ; [facility] Terconazole 80MG Vaginal Suppository 08/12/2017 - 08/15/2017 Provider: NATIVIDAD ROLAND Diagnosis: Candidiasis of v ulva and vagina as directed ONE SUPP IN VAGI NA EVERY NIGHT X 3 Last Documented On 8 8:29AM By NATIVIDAD RODRIGUEZ ; [facility] PNV-Select 27-0.6-0.4MG Oral Tablet 06/20/2017 - 06/15/2018 Provider: NATIVIDAD DOUGLAS BC Diagnosis: Encounter for test, result positive 1 tablet every morning Last Documented On 8 8:30AM By NATIVIDAD RODRIGUEZ ; [facility] Fluconazole 150MG Oral Tablet 01/09/2017 - 01/11/2017 Provider: NATIVIDAD DOUGLAS BC Diagnosis: Candidiasis of v ulva and vagina One tablet today and repeat in 3 days Last Documented On 7 1:43PM By NATIVIDAD RODRIGUEZ ; [facility] MonoNessa 0.25-35MG-MCG Oral Tablet 12/10/2016 - 01/07/2017 Provider: NATIIVDAD DOUGLAS BC Diagnosis: Encounter for surveillance of contraceptive pills *1 dly - One tablet daily On e tablet daily TAKE TAB DAILY AT THE SAME TIME W/FOOD Last Documented On 7 3:22PM By NATIVIDAD RODRIGUEZ ; [facility] MonoNessa 0.25-35 MG-MCG Tablet 12/14/2015 - 01/11/2016 Provider: NATIVIDAD DOUGLAS BC Diagnosis: One tablet daily Last Documented On 6 11:58AM By NATIVIDAD RODRIGUEZ ; [facility] Sprintec 28 0.25-35 MG-MCG Tablet 09/09/2015 - 11/04/2015 Provider: NATIVIDAD DOUGLAS BC Diagnosis: One tablet daily Last Documented On 6 3:13PM By NATIVIDAD RODRIGUEZ ; [facility] Nystatin 668900 UNIT/GM EX CREA 11/11/2012 - 11/18/2012 Provider: NATIVIDAD DOUGLAS BC Diagnosis: CANDIDAL VULVOVA GINITIS APPLY TO AREAS 3 TIMES A DAY DIRECTED PLEASE DISPENSE 30 GM TUBE Last Documented On 3 1:48PM By NATIVIDAD OLIVAS ; [facility] Amoxicillin 500 MG OR CAPS 10/17/2012 - 10/24/2012 Pro vider: NATIVIDAD PERRY RN ASLHEY Diagnosis: VAGINITIS NOS use as directed w/food Last Documented On 3 2:37PM By NATIVIDAD OLIVAS ; [facility] Terconazole 0.4% VA CREA 10/14/2012 - 11/04/2012 Provider: NATIVIDAD PERRY RN ASHLEY Diagnosis: CANDIDAL VULVOVA GINITIS one kenneth in vagina every nigh t x 7 apply bid to perineum Last Documented On 3 9:04AM By NATIVIDAD OLIVAS ; [facility] Ortho-Cyclen (28) 0.25-35 MG-MCG OR TABS 03/27/2012 - 04/24/2012 Provider: DAQUAN DEWEY MD Diagnosis: Excessive Menstr uation Last Documented On 03/27/2012 1:42PM By DAQUAN DEWEY MD ; [facility] Medications Administered Includes: Administered Medications [...] Last Documented On 0 12:48PM ; [facility] History of surgery tip of finger 018 Last Documented On 0 12:48PM ; [facility] Medical History Includes: Medical History addressed during this encounter Description Last Updated No recent change in medical history 02/11 Last Documented On 0 12:48PM ; [facility] LMP: 12/28/2018 03/03/2019 Last Documented On 0 12:48PM ; [facility] Sexually active 03/03/2019 Last Documented On 0 12:48PM ; [facility] Contraception: paragard 04-09-18 019 Last Documented On 0 12:48PM ; [facility] History of Pap smear done 02/26/2018 Last Documented On 0 12:48PM ; [facility] Result: normal 03/03/2019 Last Documented On 0 12:48PM ; [facility] 1 04/09/2018 Last Documented On 0 12:48PM ; [facility] Para 1 04/09/2018 Last Documented On 0 12:48PM ; [facility] PRIMARY CARE PROVIDER : Clara 2015 Last Documented On 0 12:48PM ; [facility] History of Gardasil 2011 07/27/2013 Last Documented On 0 12:48PM ; [facility] Family History Includes: Family History addressed during this encounter Description Last Updated Family history unchanged 03/03/2019 Last Documented On 0 12:48PM ; [facility] Maternal history of diabetes mellitus mo m 03/03/2019 Last Documented On 0 12:48PM ; [facility] Paternal history of hypertension dad Last Documented On 0 12:48PM ; [facility] Paternal history of pure hypercholestero lemia father 03/03/2019 Last Documented On 0 12:48PM ; [facility] Family history of diabetes mellitus mom 05/01/2012 Last Documented On 0 12:56PM ; [facility] Family history of hypertension dad 05/01 Last Documented On 0 12:48PM ; [facility] Family history of Diabetes MOTHER 2009 Last Documented On 0 12:48PM ; [facility] Review of Systems Includes: Review of Systems [...] Last Documented On 9 8:14AM ; [facility] Encounters Encounter Provider Location Date Check-In Time Check-Out Time Diagnosis RX ISSUE/REFILL NATIVIDAD PERRY RN [facility] 01/14/2020 12:48PM 11:59PM Insurance Includes: Active Insurance Policies No Insurance Coverage Recorded Guarantor Relationship Effective Dates Guarantor Ph one LUIZ HERNANDEZ [facility] [id number] Clinical Notes Includes: Clinical Notes from this encounter No Clinical Notes Recorded
--- OUTSIDE RECORDS SUMMARY | 2024-06-16 17:26 | XMS_ITS | Clinical Summary ---
Author Organization [facility] Address [address] [place] [address] Phone Care Team Providers Care Geodetic Advisor Name Role Phone MACO COX, DAQUAN Dow Unavailable [phone] CLARA COX, AZAEL Antony Primary Care Provider [phone] Reason for Visit and Chief Complaint [Patient Encounter] Problems Includes: Problems addressed during this encounter and other active Problems All Visits Onset Date Resolved Date Provider Condition S tatus Vulvovaginitis Dianne Albicans 10/14/2012 NATIVIDAD PERRY RN [facility] Active Last Documented On 10/14/2012 9:11AM ; [facility] Note: Unchanged History of Allergic Rhinitis 05/01/2012 NATIVIDAD PERRY RN ASHLEY Active Last Documented On 05/01/2012 11:32AM ; [facility] Note: Unchanged - seasonal History of Depression 05/01/2012 NATIVIDAD PERRY RN ASHLEY Active Last Documented On 05/01/2012 11:32AM ; [facility] Note: Unchanged Female Pelvic Pain 12/07/2009 IMTIAZ EMERSON Active Last Documented On 12/07/2009 1:31PM ; [facility] Note: Unchanged Dysmenorrhea 12/07/2009 IMTIAZ EMERSON Active Last Documented On 12/07/2009 1:31PM ; [facility] Note: Unchanged Plan of Treatment [...] On 9 8:14AM By MARIBEL PLUMMER ; [facility] Paragard Intrauterine Copper Intrauterine device 04/09 Provider: Diagnosis: Last Documented On 9 8:04AM By MARIBEL PLUMMER ; [facility] Medications Administered Includes: Administered Medications [...] Active Last Documented On 9 8:14AM ; [facility] Imitrex Allergy Skin Rashes / Eruption of skin, Hives / Urticaria 07/27/2013 Active Last Documented On 9 8:14AM ; [facility] Encounters Encounter Provider Location Date Check-In Time Check- Out Time Diagnosis [Patient Encounter] NATIVIDAD PERRY RN ASHLEY [facility]- 0 10:52AM 11:59PM Insurance Includes: Active Insurance Policies No Insurance Coverage Recorded Guarantor Relationship Effective Dates Guarantor Ph one LUIZ HERNANDEZ [id number] Clinical Notes Includes: Clinical Notes from this encounter No Clinical Notes Recorded
--- OUTSIDE RECORDS SUMMARY | 2024-06-16 17:26 | XMS_ITS ---
Author Organization [facility] Address [address] [place] [address] Phone Care Team Providers Care Bus Matron Name Role Phone MACO COX, DAQUAN Dow Unavailable [phone] AZAEL ELIZABETH MD Primary Care Provider [phone] Problems Includes: Active, inactive, and resolved Problems All Visits Onset Date Resolved Date Provider Condition S tatus History of Breast Disorders 07/26/2017 Unknown DAQUAN DEWEY MD Resolved Last Documented On 07/09/2018 11:40AM ; [facility] Note: was Closed. History of Depression 07/26/2017 Unknown DAQUAN DEWEY MD Resolved Last Documented On 07/09/2018 11:40AM ; [facility] Note: was Closed. History of Diabetes Mellitus 07/26/2017 Unknown DAQUAN DEWEY MD Resolved Last Documented On 07/09/2018 11:40AM ; [facility] Note: was Closed. History of Essential Hypertension 07/26/2017 Unknown DAQUAN DEWEY MD Resolved Last Documented On 07/09/2018 11:40AM ; [facility] Note: was Closed. History of Neurologic Disorders 07/26/2017 Unknown DAQUAN DEWEY MD Resolved Last Documented On 07/09/2018 11:40AM ; [facility] Note: was Closed. History of Psychiatric Disorders 07/26/2017 Unknown DAQUAN DEWEY MD Resolved Last Documented On 07/09/2018 11:40AM ; [facility] Note: was Closed. History of Reported Physical Trauma 07/26/2017 Unknown DAQUAN DEWEY MD Resolved Last Documented On 07/09/2018 11:40AM ; [facility] Note: was Closed. History of Thromboembolic Disease 07/26/2017 Unknown DAQUAN DEWEY MD Resolved Last Documented On 07/09/2018 11:40AM ; [facility] Note: was Closed. History of Thyroid Disorders 07/26/2017 Unknown DAQUAN DEWEY MD Resolved Last Documented On 07/09/2018 11:40AM ; [facility] Note: was Closed. Reported Previous Std 07/26/2017 Unknown DAQUAN DEWEY MD Resolved Last Documented On 07/09/2018 11:40AM ; [facility] Note: was Closed. Respiratory Disorders 07/26/2017 Unknown DAQUAN DEWEY MD Resolved Last Documented On 07/09/2018 11:40AM ; [facility] Note: was Closed. Vulvovaginitis Dianne Albicans 10/14/2012 NATIVIDAD PERRY RN [facility] Active Last Documented On 10/14/2012 9:11AM ; [facility] Note: Unchanged Candidiasis Vaginal 05/01/2012 NATIVIDAD PERRY RN [facility] Inactive Last Documented On 10/14/2012 9:11AM ; [facility] Note: Unchanged History of Allergic Rhinitis 05/01/2012 NATIVIDAD PERRY RN [facility] Active Last Documented On 05/01/2012 11:32AM ; [facility] Note: Unchanged - seasonal History of Depression 05/01/2012 NATIVIDAD PERRY RN [facility] Active Last Documented On 05/01/2012 11:32AM ; [facility] Note: Unchanged Female Pelvic Pain 12/07/2009 IMTIAZ EMERSON Active Last Documented On 12/07/2009 1:31PM ; [facility] Note: Unchanged Dysmenorrhea 12/07/2009 IMTIAZ EMERSON Active Last Documented On 12/07/2009 1:31PM ; [facility] Note: Unchanged Plan of Treatment Findings Encounter Date Ordered Clinical summary pro vided to patient WELL WOMAN EXAM with NATIVIDAD PERRY RN [facility] 03/03/2019 Last Documented On 9 9:37AM ; [facility] Cervix easily visualized , c ervix swabbed with Betadine PROCEDURE OFFICE with DAQUAN DEWEY MD 04/09/2018 Last Documented On 8 9:39AM ; [facility] Cashier Courtesy Booth removed. PROCEDURE OFFICE with DAQUAN GALLO MD 04/09/2018 Last Documented On 8 9:39AM ; [facility] IUD strings trimmed to 3-4 cm. PROCEDURE OFFICE with DAQUAN DEWEY MD 04/09/2018 Last Documented On 8 9:39AM ; [facility] Mirena trader introduced t hrough cervix to 7 cm PROCEDURE OFFICE with DAQUAN DEWEY MD 04/09/2018 Last Documented On 8 9:39AM ; [facility] Mirena trader phlange posi tioned to 8 cm, also PROCEDURE OFFICE with DAQUAN DEWEY MD 04/09/2018 Last Documented On 8 9:39AM ; [facility] Mirena released and trader advanced to 8 cm PROCEDURE OFFICE with DAQUAN DEWEY MD 04/09/2018 Last Documented On 8 9:39AM ; [facility] Patient tolerated procedure well PROCEDURE OFFIC E with DAQUAN DEWEY MD 04/09/2018 Last Documented On 8 9:39AM ; [facility] Sterile speculum inserted PROCEDURE OFFICE with DAQUAN DEWEY MD 04/09/2018 Last Documented On 8 9:39AM ; [facility] Tenaculum applied to anterior cervix. OK OCEDURE OFFICE with DAQUAN DEWEY MD 04/09/2018 Last Documented On 8 9:39AM ; [facility] Tenaculum removed and pressu re applied to tenaculum sites with cotton swabs until hemostatis obtained. PROCEDURE OFFICE with DAQUAN DEWEY MD 04/09/2018 Last Documented On 8 9:39AM ; [facility] Uterus sounded to 7 cm PROCEDURE OFFICE with DAQUAN DEWEY MD 04/09/2018 Last Documented On 8 9:39AM ; [facility] Ordered Clinical summary pro vided to patient MISSED MENSES with NATIVIDAD PERRY RN [facility] 06/20/2017 Last Documented On 8 8:36AM ; [facility] Ordered Clinical summary pro vided to patient ENGLISH INSTRUCTOR EXAM with NATIVIDAD PERRY RN [facility] 01/09/2017 Last Documented On 7 2:57PM ; [facility] Ordered Clinical summary pro vided to patient RECHECK with NATIVIDAD PERRY RN [facility] 02/09/2016 Last Documented On 6 10:36AM ; [facility] Ordered Clinical summary pro vided to patient ENGLISH INSTRUCTOR EXAM with NATIVIDAD PERRY RN [facility] 01/09/2016 Last Documented On 6 10:16AM ; [facility] Ordered Clinical summary pro vided to patient ENGLISH INSTRUCTOR EXAM with NATIVIDAD PERRY RN [facility] 10/26/2014 Last Documented On 5 4:19PM ; [facility] Ordered Clinical summary pro vided to patient ENGLISH INSTRUCTOR EXAM with NATIVIDAD PERRY RN [facility] 07/27/2013 Last Documented On 4 10:23AM ; [facility] Ordered a vaginal culture SHIVA GBBS PROBL EM VISIT with NATIVIDAD PERRY RN [facility] 11/11/2012 Last Documented On 3 2:05PM ; [facility] Ordered Clinical summary pro vided to patient PROBLEM VISIT with NATIVIDAD PERRY RN [facility] 10/14/2012 Last Documented On 3 9:11AM ; [facility] Pt will let us know if she h as any problems and present back for a second BP check visit like this in 3 months for refilll of pills till time for her WWE next year NEW ENGLISH INSTRUCTOR EXAM with DAQUAN DEWEY MD 04/11/2011 Last Documented On 1 5:13PM ; [facility] Ordered follow-up visit Afte r tile and marble installer ultrasound to discuss results and possibility of starting OCP's NEW ENGLISH INSTRUCTOR EXAM with IMTIAZ EMERSON 12/07/2009 Last Documented On 0 1:33PM ; [facility] Instructions to patient Instructions for patient : B reast Self Exam discussed and technique reviewed Last Documented On 9 8:48AM ; [facility] Use a condom during sexual i ntercourse Last Documented On 9 8:48AM ; [facility] Instructed to call if excess anish bleeding or abdominal/pelvic pain Last Documented On 9 8:48AM ; [facility] Recommend diet and exercise at least 30 min three times per week Last Documented On 9 8:48AM ; [facility] Instructions for patient ER if dizzy, vomiting or light-headed due to heavy bleeding Last Documented On 9 8:58AM ; [facility] Instructions for patient ER if bleeding through reg. sized pad/tampon < 1 hour Last Documented On 9 8:58AM ; [facility] Instructions for patient : B reast Self Exam discussed and technique reviewed Last Documented On 7 1:21PM ; [facility] Use a condom during sexual i ntercourse Last Documented On 7 1:21PM ; [facility] Instructed to call if excess anish bleeding or abdominal/pelvic pain Last Documented On 7 1:21PM ; [facility] Recommend diet and exercise at least 30 min three times per week Last Documented On 7 1:21PM ; [facility] Instructions for patient : B reast Self Exam discussed and technique reviewed Last Documented On 6 10:03AM ; [facility] Use a condom during sexual i ntercourse Last Documented On 6 10:03AM ; [facility] Instructed to call if excess anish bleeding or abdominal/pelvic pain Last Documented On 6 10:03AM ; [facility] Recommend diet and exercise at least 30 min three times per week Last Documented On 6 10:03AM ; [facility] Instructions for patient : B reast Self Exam discussed and technique reviewed Last Documented On 5 4:09PM ; [facility] Use a condom during sexual i ntercourse Last Documented On 5 4:09PM ; [facility] Instructed to call if excess anish bleeding or abdominal/pelvic pain Last Documented On 5 4:09PM ; [facility] Recommend diet and exercise at least 30 min three times per week Last Documented On 5 4:09PM ; [facility] Instructions for patient : B reast Self Exam discussed and technique reviewed Last Documented On 4 10:01AM ; [facility] Use a condom during sexual i ntercourse Last Documented On 4 10:01AM ; [facility] Instructed to call if excess anish bleeding or abdominal/pelvic pain Last Documented On 4 10:01AM ; [facility] Recommend diet and exercise at least 30 min three times per week DISCUSSED SMALL FREQ. MEALS, INCREASED WATER INTAKE, ACTIVITIES BETWEEN CLASSES. ALL QUESTIONS ANSWERED Last Documented On 4 10:23AM ; [facility] Instructions for patient : K eep the area around the vulva dry. Allow the area to have exposure to air. Avoid irritants such as fabric softeners and perfumed soaps.~ Last Documented On 3 2:02PM ; [facility] Instructions for patient : K eep the area around the vulva dry. Allow the area to have exposure to air. Avoid irritants such as fabric softeners and perfumed soaps.~ Last Documented On 3 9:02AM ; [facility] Instructions for patient : B reast Self Exam discussed and technique reviewed Last Documented On 2 11:03AM ; [facility] Use a condom during sexual i ntercourse Last Documented On 2 11:03AM ; [facility] Instructions For Patient: Mo nthly Self Breast Exam Last Documented On 2 11:03AM ; [facility] Recommend diet and exercise at least 30 min three times per week Last Documented On 2 11:03AM ; [facility] Recommend preventative vacci nation including but not limited to influenza/flu vaccine, DTP, Rubella, Hepatitis B vaccination series Last Documented On 2 11:03AM ; [facility] Education and Decision Aids were provided during visit for: New OB form given to patient Last Documented On 8 8:33AM ; [facility] Patient education RE: natalee g signals associated with hormonal contraceptive use including abdominal, chest, or leg pain, headaches or visual disturbances Last Documented On 7 1:21PM ; [facility] Patient Education: Daily anoop cium and vitamin D Last Documented On 7 1:21PM ; [facility] Patient education RE: warmein g signals associated with hormonal contraceptive use including abdominal, chest, or leg pain, headaches or visual disturbances Last Documented On 6 10:03AM ; [facility] Patient Education: Daily anoop cium and vitamin D Last Documented On 6 10:03AM ; [facility] Patient education RE: natalee painter signals associated with hormonal contraceptive use including abdominal, chest, or leg pain, headaches or visual disturbances Last Documented On 5 4:09PM ; [facility] Patient Education: Daily anoop cium and vitamin D Last Documented On 5 4:09PM ; [facility] Discussed smoking and drug u se Last Documented On 4 10:01AM ; [facility] Patient education RE: natalee painter signals associated with hormonal contraceptive use including abdominal, chest, or leg pain, headaches or visual disturbances Last Documented On 4 10:01AM ; [facility] Patient Education: Daily anoop cium and vitamin D Last Documented On 4 10:01AM ; [facility] Patient education :VAGINAL H YGIENE AND SITZ BATHS TO RELIEVE SX Last Documented On 3 2:05PM ; [facility] Patient education :HANDOUT G LATASHA PT DECLINES STI SEROLOGY Last Documented On 3 9:11AM ; [facility] Patient counseling :VAGINAL HYGIENE Last Documented On 3 9:11AM ; [facility] Discussed use of seat belts Last Documented On 2 11:03AM ; [facility] Discussed smoking and drug u se Last Documented On 2 11:03AM ; [facility] Discussed risk-taking behavi or Last Documented On 2 11:03AM ; [facility] Patient education RE: natalee painter signals associated with hormonal contraceptive use including abdominal, chest, or leg pain, headaches or visual disturbances Last Documented On 2 11:03AM ; [facility] Patient Education: Daily anoop cium and vitamin D Last Documented On 2 11:03AM ; [facility] Patient Education: weight be aring exercise Last Documented On 2 11:03AM ; [facility] Patient will maintain adequa te intake of dietary Ca+ and Mg+ Last Documented On 2 11:03AM ; [facility] control consent review ed and signed Last Documented On 2 11:03AM ; [facility] R/B/A to OCP's are reviewed with the patient and her mother who is present today. Correct pill taking is reviewed, questions answered and pt expresses understanding and wants to continue on the pill Last Documented On 2 5:44PM ; [facility] Risks, benefits, and alterna tives to OCP's are reviewed. Correct pill taking is discussed. Questions answered. Pt expresses understanding and wants to continue on her OCP's Last Documented On 2 8:58AM ; [facility] Assessments Includes: Assessments for all patient encounters Findings Encounter Date Major depression, recurrent WELL WOMAN EXAM with NATIVIDAD PERRY RN [facility] 03/03/2019 Last Documented On 9 9:37AM ; [facility] NORMAL FEMALE EXAM WELL WOMAN EXAM with NATIVIDAD PERRY RN [facility] 03/03/2019 Last Documented On 9 9:37AM ; [facility] Screen malignant neoplasm cervix WELL WO MAN EXAM with NATIVIDAD PERRY RN [facility] 03/03/2019 Last Documented On 9 9:37AM ; [facility] Vaginal candidiasis and topical R breast WELL WOMAN EXAM with NATIVIDAD PERRY RN [facility] 03/03/2019 Last Documented On 9 9:37AM ; [facility] Major depressive disorder resolved MED CHECK wit chi PERRY RN [facility] 10/28/2018 Last Documented On 9 4:16PM ; [facility] Dysfunctional uterine bleeding PROBLEM VISIT wit chi PERRY RN [facility] 09/11/2018 Last Documented On 9 9:29AM ; [facility] Major depressive disorder PROBLEM VISIT with ERIC PERRY RN [facility] 09/11/2018 Last Documented On 9 9:29AM ; [facility] Vaginitis PROBLEM VISIT with NATIVIDAD PERRY RN [facility] 09/11/2018 Last Documented On 9 9:29AM ; [facility] Checking intrauterine device (IUD) 1 MONTH CHECK with DAQUAN DEWEY MD 05/14/2018 Last Documented On 9 9:08AM ; [facility] Contraceptive management: In sertion of IUD PROCEDURE OFFICE with DAQUAN DEWEY MD 04/09/2018 Last Documented On 8 9:39AM ; [facility] General counseling on contraception PROC EDURE OFFICE with DAQUAN DEWEY MD 04/09/2018 Last Documented On 8 9:39AM ; [facility] Routine history a nd physical POST VISIT with DAQUAN DEWEY MD 02/26/2018 Last Documented On 8 11:38AM ; [facility] exam with positive result confirmed by vaginal examination MISSED MENSES with NATIVIDAD PERRY RN [facility] 06/20/2017 Last Documented On 8 8:36AM ; [facility] Vaginal candidiasis MISSED MENSES with NATIVIDAD BRAVO RN [facility] 06/20/2017 Last Documented On 8 8:36AM ; [facility] NORMAL FEMALE EXAM ENGLISH INSTRUCTOR EXAM with NATIVIDAD [place] [facility] 01/09/2017 Last Documented On 7 2:57PM ; [facility] Screen malignant neoplasm cervix ENGLISH INSTRUCTOR EXAM with Victor M PERRY RN [facility] 01/09/2017 Last Documented On 7 2:57PM ; [facility] Routine pelvic exam ENGLISH INSTRUCTOR EXAM with NATIVIDAD PERRY RN [facility] 01/09/2016 Last Documented On 6 10:16AM ; [facility] Screen malignant neoplasm cervix ENGLISH INSTRUCTOR EXAM with Victor M PERRY RN [facility] 01/09/2016 Last Documented On 6 10:16AM ; [facility] Contraceptive management ENGLISH INSTRUCTOR EXAM with NATIVIDAD BRAVO RN [facility] 10/26/2014 Last Documented On 5 4:19PM ; [facility] Routine gynecological exam ENGLISH INSTRUCTOR EXAM with NATIVIDAD PERRY RN [facility] 10/26/2014 Last Documented On 5 4:19PM ; [facility] Contraceptive management ENGLISH INSTRUCTOR EXAM with NATIVIDAD BRAVO RN [facility] 07/27/2013 Last Documented On 4 10:23AM ; [facility] Routine gynecological exam ENGLISH INSTRUCTOR EXAM with NATIVIDAD PERRY RN [facility] 07/27/2013 Last Documented On 4 10:23AM ; [facility] Vaginal candidiasis PROBLEM VISIT with NATIVIDAD BRAVO RN [facility] 11/11/2012 Last Documented On 3 2:05PM ; [facility] Dianne albicans vulvovaginitis PROBLEM VISIT with NATIVIDAD PERRY RN [facility] 10/14/2012 Last Documented On 3 9:11AM ; [facility] Contraceptive management NEW ENGLISH INSTRUCTOR EXAM with NATIVIDAD PERRY RN [facility] 05/01/2012 Last Documented On 2 11:32AM ; [facility] NORMAL FEMALE EXAM NEW ENGLISH INSTRUCTOR EXAM with NATIVIDAD SAGE RN [facility] 05/01/2012 Last Documented On 2 11:32AM ; [facility] Routine gynecological exam NEW ENGLISH INSTRUCTOR EXAM with ERIC PERRY RN [facility] 05/01/2012 Last Documented On 2 11:32AM ; [facility] SCREENING FOR STD NEW ENGLISH INSTRUCTOR EXAM with NATIVIDAD Cameron RN [facility] 05/01/2012 Last Documented On 2 11:32AM ; [facility] Vaginal candidiasis NEW ENGLISH INSTRUCTOR EXAM with NATIVIDAD WOODARD RN [facility] 05/01/2012 Last Documented On 2 11:32AM ; [facility] Menorrhagia -- controlling with OCP's BL OOD PRESSURE CHECK-UP with DAQUAN DEWEY MD 10/16/2011 Last Documented On 2 5:45PM ; [facility] Encounter for contraceptive pill surveillance BLOOD PRESSURE CHECK-UP with DAQUAN DEWEY MD 07/11/2011 Last Documented On 2 9:00AM ; [facility] Menorrhagia BLOOD PRESSURE CHECK-UP with DAQUAN DEWEY MD 07/11/2011 Last Documented On 2 9:00AM ; [facility] Menorrhagia NEW ENGLISH INSTRUCTOR EXAM with DAQUAN DEWEY MD 04/11/2011 Last Documented On 1 5:13PM ; [facility] Dysmenorrhea NEW ENGLISH INSTRUCTOR EXAM with IMTIAZ Lal [facility] AM 12/07/2009 Last Documented On 0 1:33PM ; [facility] Female pelvic pain NEW ENGLISH INSTRUCTOR EXAM with IMTIAZ Lal URAM 12/07/2009 Last Documented On 0 1:33PM ; [facility] Instructions Includes: Instructions for all patient encounters Instructions to patient Instructions for patient : B reast Self Exam discussed and technique reviewed Last Documented On 9 8:48AM ; [facility] Use a condom during sexual i ntercourse Last Documented On 9 8:48AM ; [facility] Instructed to call if excess anish bleeding or abdominal/pelvic pain Last Documented On 9 8:48AM ; [facility] Recommend diet and exercise at least 30 min three times per week Last Documented On 9 8:48AM ; [facility] Instructions for patient ER if dizzy, vomiting or light-headed due to heavy bleeding Last Documented On 9 8:58AM ; [facility] Instructions for patient ER if bleeding through reg. sized pad/tampon < 1 hour Last Documented On 9 8:58AM ; [facility] Instructions for patient : B reast Self Exam discussed and technique reviewed Last Documented On 7 1:21PM ; [facility] Use a condom during sexual i ntercourse Last Documented On 7 1:21PM ; [facility] Instructed to call if excess anish bleeding or abdominal/pelvic pain Last Documented On 7 1:21PM ; [facility] Recommend diet and exercise at least 30 min three times per week Last Documented On 7 1:21PM ; [facility] Instructions for patient : B reast Self Exam discussed and technique reviewed Last Documented On 6 10:03AM ; [facility] Use a condom during sexual i ntercourse Last Documented On 6 10:03AM ; [facility] Instructed to call if excess anish bleeding or abdominal/pelvic pain Last Documented On 6 10:03AM ; [facility] Recommend diet and exercise at least 30 min three times per week Last Documented On 6 10:03AM ; [facility] Instructions for patient : B reast Self Exam discussed and technique reviewed Last Documented On 5 4:09PM ; [facility] Use a condom during sexual i ntercourse Last Documented On 5 4:09PM ; [facility] Instructed to call if excess anish bleeding or abdominal/pelvic pain Last Documented On 5 4:09PM ; [facility] Recommend diet and exercise at least 30 min three times per week Last Documented On 5 4:09PM ; [facility] Instructions for patient : B reast Self Exam discussed and technique reviewed Last Documented On 4 10:01AM ; [facility] Use a condom during sexual i ntercourse Last Documented On 4 10:01AM ; [facility] Instructed to call if excess anish bleeding or abdominal/pelvic pain Last Documented On 4 10:01AM ; [facility] Recommend diet and exercise at least 30 min three times per week DISCUSSED SMALL FREQ. MEALS, INCREASED WATER INTAKE, ACTIVITIES BETWEEN CLASSES. ALL QUESTIONS ANSWERED Last Documented On 4 10:23AM ; [facility] Instructions for patient : K eep the area around the vulva dry. Allow the area to have exposure to air. Avoid irritants such as fabric softeners and perfumed soaps.~ Last Documented On 3 2:02PM ; [facility] Instructions for patient : K eep the area around the vulva dry. Allow the area to have exposure to air. Avoid irritants such as fabric softeners and perfumed soaps.~ Last Documented On 3 9:02AM ; [facility] Instructions for patient : B reast Self Exam discussed and technique reviewed Last Documented On 2 11:03AM ; [facility] Use a condom during sexual i ntercourse Last Documented On 2 11:03AM ; [facility] Instructions For Patient: Mo nthly Self Breast Exam Last Documented On 2 11:03AM ; [facility] Recommend diet and exercise at least 30 min three times per week Last Documented On 2 11:03AM ; [facility] Recommend preventative vacci nation including but not limited to influenza/flu vaccine, DTP, Rubella, Hepatitis B vaccination series Last Documented On 2 11:03AM ; [facility] Education and Decision Aids were provided during visit for: New OB form given to patient Last Documented On 8 8:33AM ; [facility] Patient education RE: warnin g signals associated with hormonal contraceptive use including abdominal, chest, or leg pain, headaches or visual disturbances Last Documented On 7 1:21PM ; [facility] Patient Education: Daily anoop cium and vitamin D Last Documented On 7 1:21PM ; [facility] Patient education RE: warnin g signals associated with hormonal contraceptive use including abdominal, chest, or leg pain, headaches or visual disturbances Last Documented On 6 10:03AM ; [facility] Patient Education: Daily anoop cium and vitamin D Last Documented On 6 10:03AM ; [facility] Patient education RE: warnin g signals associated with hormonal contraceptive use including abdominal, chest, or leg pain, headaches or visual disturbances Last Documented On 5 4:09PM ; [facility] Patient Education: Daily anoop cium and vitamin D Last Documented On 5 4:09PM ; [facility] Discussed smoking and drug u se Last Documented On 4 10:01AM ; [facility] Patient education RE: warnin g signals associated with hormonal contraceptive use including abdominal, chest, or leg pain, headaches or visual disturbances Last Documented On 4 10:01AM ; [facility] Patient Education: Daily anoop cium and vitamin D Last Documented On 4 10:01AM ; [facility] Patient education :VAGINAL H YGIENE AND SITZ BATHS TO RELIEVE SX Last Documented On 3 2:05PM ; [facility] Patient education :HANDOUT Edgar PAGAN PT DECLINES STI SEROLOGY Last Documented On 3 9:11AM ; [facility] Patient counseling :VAGINAL HYGIENE Last Documented On 3 9:11AM ; [facility] Discussed use of seat belts Last Documented On 2 11:03AM ; [facility] Discussed smoking and drug u se Last Documented On 2 11:03AM ; [facility] Discussed risk-taking behavi or Last Documented On 2 11:03AM ; [facility] Patient education RE: warnin g signals associated with hormonal contraceptive use including abdominal, chest, or leg pain, headaches or visual disturbances Last Documented On 2 11:03AM ; [facility] Patient Education: Daily anoop cium and vitamin D Last Documented On 2 11:03AM ; [facility] Patient Education: weight be aring exercise Last Documented On 2 11:03AM ; [facility] Patient will maintain adequa te intake of dietary Ca+ and Mg+ Last Documented On 2 11:03AM ; [facility] control consent review ed and signed Last Documented On 2 11:03AM ; [facility] R/B/A to OCP's are reviewed with the patient and her mother who is present today. Correct pill taking is reviewed, questions answered and pt expresses understanding and wants to continue on the pill Last Documented On 2 5:44PM ; [facility] Risks, benefits, and alterna tives to OCP's are reviewed. Correct pill taking is discussed. Questions answered. Pt expresses understanding and wants to continue on her OCP's Last Documented On 2 8:58AM ; [facility] Medical Equipment - Implanted Devices Includes: Current and historical Devices No Medical Equipment Recorded Medications Includes: Current and historical Medications Current Medications (continue as prescribed) [facility] Ibuprofen 200MG Oral Tablet 09/11/2018 Provider: Diagnosis: PRN Last Documented On 9 8:14AM By MARIBEL PLUMMER ; [facility] Paragard Intrauterine Copper Intrauterine device 04/09 Provider: Diagnosis: Last Documented On 9 8:04AM By MARIBEL PLUMMER ; [facility] Past Medications on file Fluconazole 150 MG Oral Tablet 01/14/2020 - 01/16/2020 Provider: NATIVIDAD DOUGLAS Diagnosis: Acute vaginitis as directed take 1 tablet to day and repeat in 3 days Last Documented On 0 1:09PM By NATIVIDAD DOUGLAS-ASUNCION ; [facility] Citalopram Hydrobromide 20 MG Oral Tablet 12/28/2019 - 03/27/2020 Provider: NATIVIDAD DOUGLAS BC Diagnosis: Major depressive disorder, recurrent, unspecified One tablet daily Last Documented On 0 1:43PM By NATIVIDAD RODRIGUEZ ; [facility] Fluconazole 150 MG Oral Tablet 03/03/2019 - 03/06/2019 Provider: NATIVIDAD DOUGLAS Diagnosis: Candidiasis of v ulva and vagina TAKE 1 TAB today and repeat in 3 days Last Documented On 9 9:11AM By NATIVIDAD RODRIGUEZ ; [facility] Citalopram Hydrobromide 20 MG Oral Tablet 03/03/2019 - 12/28/2019 Provider: NATIVIDAD DOUGLAS Diagnosis: Major depressive disorder, recurrent, unspecified One tablet daily Last Documented On 0 1:41PM By NATIVIDAD RODRIGUEZ ; [facility] Citalopram Hydrobromide 20MG Oral Tablet 10/28/2018 - 03/03/2019 Provider: NATIVIDAD DOUGLAS Diagnosis: Major depressive disorder, recurrent, unspecified One tablet daily Last Documented On 9 9:10AM By NATIVIDAD RODRIGUEZ ; [facility] Citalopram Hydrobromide 20MG Oral Tablet 10/28/2018 - 10/28/2018 Provider: Diagnosis: Last Documented On 9 4:07PM By NATIVIDAD RODRIGUEZ ; [facility] Citalopram Hydrobromide 20MG Oral Tablet 09/11/2018 - 10/28/2018 Provider: NATIVIDAD DOUGLAS Diagnosis: Encounter for screening for depression One tablet daily no further refills authorized Last Documented On 10/28/2018 3:57PM By MAX PLUMMER ; [facility] Fluconazole 150MG Oral Tablet 09/11/2018 - 01/14/2020 Provider: NATIVIDAD DOUGLAS Diagnosis: Acute vaginitis as directed TAKE ONE TAB day 4 and 1 tab day 7 of antibiotic Last Documented On 0 12:56PM By NATIVIDAD RODRIGUEZ ; [facility] Clindamycin HCl 300MG Oral Capsule 09/11/2018 - 09/18/2018 Provider: NATIVIDAD DOUGLAS Diagnosis: Acute vaginitis One tablet twice a day Last Documented On 9 8:53AM By NATIVIDAD RODRIGUEZ ; [facility] Terazol 7 0.4% Vaginal Cream 05/16/2018 - 09/11/2018 Mervin reavesder: DAQUAN DEWEY MD Diagnosis: Sig: one applicator full vaginally qhs x 7 Last Documented On 9 8:14AM By MARIBEL PLUMMER ; [facility] Paragard Intrauterine Copper Intrauterine device 04/09/2018 - 10/28/2018 Provider: Diagnosis: Last Documented On 9 10:33AM By MARIBEL PLUMMER ; [facility] Eletriptan Hydrobromide 40MG Oral Tablet 02/26/2018 - 09/11/2018 Provider: Diagnosis: Last Documented On 9 8:13AM By MARIBEL PLUMMER ; [facility] Breast Pump Miscellaneous 01/16/2018 - 09/11/2018 Provider: MARISSA OLIVASBC Diagnosis: Encounter for ca re and examination of lactating mother as directed Last Documented On 9 8:13AM By MARIBEL PLUMMER ; [facility] Breast Pump Miscellaneous 01/10/2018 - 01/10/2018 Provider: DAQUAN DEWEY MD Diagnosis: Encounter for ca re and examination of lactating mother Disp one electric breast pum p with supplies; EDC 01/19/2018. Last Documented On 8 2:33PM By MARISSA DOUGLAS-BC ; [facility] ValACYclovir HCl 1GM Oral Tablet 11/25/2017 - 09/12/19 19 Provider: DAQUAN DEWEY MD Diagnosis: One tablet daily Last Documented On 9 8:14AM By MARIBEL PLUMMER ; [facility] Nitrofurantoin Monohyd Macro 100MG Oral Capsule 11/11/2017 - 11/18/2017 Provider: NATIVIDAD DOUGLAS BC Diagnosis: Hematuria, unspe cified One tablet twice a day Last Documented On 8 4:13PM By NATIVIDAD DOUGLAS-BC ; [facility] Amoxicillin 500MG Oral Capsule 08/15/2017 - 08/22/2017 Provider: NATIVIDAD DOUGLAS BC Diagnosis: Acute vaginitis One tablet three times a day TAKE DIRECTED WITH FOOD Last Documented On 8 2:27PM By NATIVIDAD RODRIGUEZ ; [facility] Terconazole 80MG Vaginal Suppository 08/12/2017 - 08/15/2017 Provider: NATIVIDAD DOUGLAS Diagnosis: Candidiasis of v ulva and vagina as directed ONE SUPP IN VAGI NA EVERY NIGHT X 3 Last Documented On 8 8:29AM By NATIVIDAD OLIVAS ; [facility] 28-0.8MG Oral Tablet 06/20/2017 - 019 Provider: Diagnosis: Last Documented On 9 8:13AM By MARIBEL PLUMMER ; [facility] PNV-Select 27-0.6-0.4MG Oral Tablet 06/20/2017 - 06/20/2017 Provider: NATIVIDAD DOUGLAS Diagnosis: Encounter for test, result positive 1 tablet every morning Last Documented On 8 8:30AM By NATIVIDAD RODRIGUEZ ; [facility] Terconazole 80MG Vaginal Suppository 06/20/2017 - 08/12/2017 Provider: NATIVIDAD DOUGLAS Diagnosis: Candidiasis of v ulva and vagina as directed ONE SUPP IN VAGI NA EVERY NIGHT X 3 Last Documented On 8 8:29AM By NATIVIDAD RODRIGUEZ ; [facility] PNV-Select 27-0.6-0.4MG Oral Tablet 06/20/2017 - 06/15/2018 Provider: NATIVIDAD DOUGLAS Diagnosis: Encounter for test, result positive 1 tablet every morning Last Documented On 8 8:30AM By NATIVIDAD RODRIGUEZ ; [facility] Tri-Sprintec 0.18/0.215/0.25MG-35 MCG Oral Tablet 02/25/2017 - 06/20/2017 Provider: NATIVIDAD DOUGLAS Diagnosis: Encounter for contraceptive management, unspecified One tablet daily TAKE DIRECTED W/FOOD Last Documented On 06/20/2017 7:59AM By Chanell Norwood MA ; [facility] Tri-Sprintec 0.18/0.215/0.25MG-35 MCG Oral Tablet 01/09/2017 - 02/25/2017 Provider: NATIVIDAD DOUGLAS BC Diagnosis: Encounter for contraceptive management, unspecified One tablet daily TAKE DIRECTED W/FOOD Last Documented On 7 1:54PM By NATIVIDAD RODRIGUEZ ; [facility] Fluconazole 150MG Oral Tablet 01/09/2017 - 01/11/2017 Provider: NATIVIDAD DOUGLAS BC Diagnosis: Candidiasis of v ulva and vagina One tablet today and repeat in 3 days Last Documented On 7 1:43PM By NATIVIDAD RODRIGUEZ ; [facility] MonoNessa 0.25-35MG-MCG Oral Tablet 12/10/2016 - 01/07/2017 Provider: NATIVIDAD DOUGLAS BC Diagnosis: Encounter for surveillance of contraceptive pills *1 dly - One tablet daily On e tablet daily TAKE TAB DAILY AT THE SAME TIME W/FOOD Last Documented On 7 3:22PM By NATIVIDAD RODRIGUEZ ; [facility] Amitriptyline HCl 50 MG Tablet 01/09/2016 - 06/20/2017 Provider: Diagnosis: Last Documented On 06/20/2017 7:59AM By Chanell Norwood MA ; [facility] MonoNessa 0.25-35 MG-MCG Tablet 01/09/2016 - 12/10/2016 Provider: NATIVIDAD DOUGLAS BC Diagnosis: Encounter for surveillance of contraceptive pills *1 dly - One tablet daily On e tablet daily TAKE TAB DAILY AT THE SAME TIME W/FOOD Last Documented On 7 3:21PM By NATIVIDAD RODRIGUEZ ; [facility] MonoNessa 0.25-35 MG-MCG Tablet 12/14/2015 - 01/11/2016 Provider: NATIVIDAD DOUGLAS BC Diagnosis: One tablet daily Last Documented On 6 11:58AM By NATIVIDAD RODRIGUEZ ; [facility] Sprintec 28 0.25-35 MG-MCG Tablet 09/09/2015 - 11/04/2015 Provider: NATIVIDAD DOUGLAS BC Diagnosis: One tablet daily Last Documented On 6 3:13PM By NATIVIADD RODRIGUEZ ; [facility] MonoNessa 0.25-35 MG-MCG Tablet 10/26/2014 - 12/14/2015 Provider: NATIVIDAD DOUGLAS BC Diagnosis: OTHER FAMILY ESTEVAN NNING ADVICE NEC One tablet daily Last Documented On 6 11:57AM By NATIVIDAD RODRIGUEZ ; [facility] Sprintec 28 0.25-35 MG-MCG OR TABS 06/28/2014 - 09/09/2015 Provider: NATIVIDAD DOUGLAS BC Diagnosis: Last Documented On 6 3:13PM By NATIVIDAD RODRIGUEZ ; [facility] MonoNessa 0.25-35 MG-MCG OR TABS 07/27/2013 - 10/26/2014 Provider: NATIVIDAD PERRY RN ASHLEY BC Diagnosis: OTHER FAMILY ESTEVAN NNING ADVICE NEC Last Documented On 5 4:13PM By NATIVIDAD RODRIGUEZ ; [facility] Topiramate 200 MG OR TABS 07/27/2013 - 06/20/2017 Prov ider: Diagnosis: 150 MG Last Documented On 06/20/2017 7:59AM By Chanell Norwood MA ; [facility] Imitrex 100 MG OR TABS 07/27/2013 - 01/09/2016 Provide r: Diagnosis: Last Documented On 01/09/2016 10:04AM By BETSY ELENA MA ; [facility] MonoNessa 0.25-35 MG-MCG OR TABS 04/28/2013 - 01/09/2016 Provider: NATIVIDAD DOUGLAS BC Diagnosis: CONTRACEPT PILL SURVEILL TAKE TAB DAILY AT THE SAME TIME W/FOOD Last Documented On 6 10:15AM By NATIVIDAD RODRIGUEZ ; [facility] MonoNessa 0.25-35 MG-MCG OR TABS 04/13/2013 - 04/28/2013 Provider: NATIVIDAD PERRY RN ASHLEY BC Diagnosis: OTHER FAMILY ESTEVAN NNING ADVICE NEC Last Documented On 3 10:32AM By NATIVIDAD RODRIGUEZ ; [facility] Fluconazole 150 MG OR TABS 11/11/2012 - 03/03/2019 Provider: NATIVIDAD DOUGLAS BC Diagnosis: CANDIDAL VULVOVA GINITIS TAKE 1 TAB TODAY , 1 TAB 7/4, AND 1 TAB 7/6 Last Documented On 9 9:10AM By NATIVIDAD RODRIGUEZ ; [facility] Nystatin 441225 UNIT/GM EX CREA 11/11/2012 - 11/18/2012 Provider: NATIVIDAD PERRY RN ASHLEY Diagnosis: CANDIDAL VULVOVA GINITIS APPLY TO AREAS 3 TIMES A DAY DIRECTED PLEASE DISPENSE 30 GM TUBE Last Documented On 3 1:48PM By NATIVIDAD OLIVAS ; [facility] Amoxicillin 500 MG OR CAPS 10/17/2012 - 10/24/2012 Pro vider: NATIVIDAD PERRY RN ASHLEY Diagnosis: VAGINITIS NOS use as directed w/food Last Documented On 3 2:37PM By NATIVIDAD OLIVAS ; [facility] Terconazole 0.4% VA CREA 10/14/2012 - 11/04/2012 Provider: NATIVIDAD PERRY RN ASHLEY Diagnosis: CANDIDAL VULVOVA GINITIS one kenneth in vagina every nigh t x 7 apply bid to perineum Last Documented On 3 9:04AM By NATIVIDAD OLIVAS ; [facility] Fluconazole 150 MG OR TABS 05/01/2012 - 09/11/2018 Provider: NATIVIDAD PERRY RN ASHLEY Diagnosis: CANDIDAL VULVOVA GINITIS TAKE ONE TAB TODAY AND ONE TAB 05/03/12 Last Documented On 9 8:51AM By NATIVIDAD OLIVAS ; [facility] MonoNessa 0.25-35 MG-MCG OR TABS 05/01/2012 - 04/13/2013 Provider: NATIVIDAD PERRY RN ASHLEY Diagnosis: OTHER FAMILY ESTEVAN NNING ADVICE NEC Last Documented On 3 8:18AM By NATIVIDAD OLIVAS ; [facility] Ortho-Cyclen (28) 0.25-35 MG-MCG OR TABS 03/27/2012 - 04/24/2012 Provider: DAQUAN DEWEY MD Diagnosis: Excessive Menstr uation Last Documented On 03/27/2012 1:42PM By DAQUAN DEWEY MD ; [facility] Ortho-Cyclen (28) 0.25-35 MG-MCG OR TABS 10/16/2011 - 03/27/2012 Provider: DAQUAN DEWEY MD Diagnosis: Excessive Menstr uation Last Documented On 03/27/2012 1:41PM By DAQUAN DEWEY MD ; [facility] Ortho-Cyclen (28) 0.25-35 MG-MCG OR TABS 07/23/2011 - 10/16/2011 Provider: DAQUAN DEWEY MD Diagnosis: Excessive Menstr uation Last Documented On 10/16/2011 4:38PM By DAQUAN DEWEY MD ; [facility] Ortho-Cyclen (28) 0.25-35 MG-MCG OR TABS 04/11/2011 - 07/11/2011 Provider: DAQUAN DEWEY MD Diagnosis: Excessive Menstr uation Last Documented On 07/23/2011 8:59AM By DAQUAN DEWEY MD ; [facility] Zoloft 25 MG OR TABS 12/07/2009 - 07/27/2013 Provider: Diagnosis: Last Documented On 07/27/2013 9:52AM By RAMESH ESPINO ; [facility] Medications Administered Includes: Administered Medications in patient's chart No Administered Medications Recorded Results Includes: Results from 06/16/2023 through 06/16/2024 No Results Recorded For Specified Dates History of Present Illness History of Present Illness not supported for this document type No History of Present Illness Recorded Social History Description Last Updated Currently 03/03/2019 Last Documented On 9 9:37AM ; [facility] Activities 03/03/2019 Last Documented On 9 9:37AM ; [facility] Amount of sleep 03/03/2019 Last Documented On 9 9:37AM ; [facility] Education history 03/03/2019 Last Documented On 9 9:37AM ; [facility] Educational level 03/03/2019 Last Documented On 9 9:37AM ; [facility] Personal history 03/03/2019 Last Documented On 9 9:37AM ; [facility] Sexually active 03/03/2019 Last Documented On 9 9:37AM ; [facility] Alcohol use socially 03/03/2019 Last Documented On 9 9:37AM ; [facility] In monogamous relationship 03/03/2019 Last Documented On 9 9:37AM ; [facility] Non-smoker 03/03/2019 Last Documented On 9 9:37AM ; [facility] Not using drugs 03/03/2019 Last Documented On 9 9:37AM ; [facility] Sexually active with 1 partners in the l ast year 03/03/2019 Last Documented On 9 9:37AM ; [facility] Social history unchanged 03/03/2019 Last Documented On 9 9:37AM ; [facility] Smoking status : Never smoker 03/03/2019 Last Documented On 9 9:37AM ; [facility] Procedures and Surgical History Surgical History Last Updated Surgical / procedural history finger sew n on 03/03/2019 Last Documented On 9 9:37AM ; [facility] History of surgery 07/26/2017 Last Documented On 8 8:32AM ; [facility] Medical History Includes: Medical History in patient's chart Description Last Updated No recent change in medical history 02/11 Last Documented On 9 9:37AM ; [facility] LMP: 12/28/2018 03/03/2019 Last Documented On 9 9:37AM ; [facility] Sexually active 03/03/2019 Last Documented On 9 9:37AM ; [facility] Contraception: paragard 04-09-18 019 Last Documented On 9 9:37AM ; [facility] History of Pap smear done 02/26/2018 Last Documented On 9 9:37AM ; [facility] Result: normal 03/03/2019 Last Documented On 9 9:37AM ; [facility] 1 04/09/2018 Last Documented On 8 9:39AM ; [facility] Para 1 04/09/2018 Last Documented On 8 9:39AM ; [facility] PRIMARY CARE PROVIDER : [place] 2015 Last Documented On 6 10:16AM ; [facility] History of Gardasil 2011 07/27/2013 Last Documented On 4 10:23AM ; [facility] Family History Includes: Family History in patient's chart Description Last Updated Family history unchanged 03/03/2019 Last Documented On 9 9:37AM ; [facility] Maternal history of diabetes mellitus mo m 03/03/2019 Last Documented On 9 9:37AM ; [facility] Paternal history of hypertension dad Last Documented On 9 9:37AM ; [facility] Paternal history of pure hypercholestero lemia father 03/03/2019 Last Documented On 9 9:37AM ; [facility] Family history of diabetes mellitus mom 05/01/2012 Last Documented On 2 11:32AM ; [facility] Family history of hypertension dad 05/01 Last Documented On 2 11:32AM ; [facility] Family history of Diabetes MOTHER 2009 Last Documented On 0 1:33PM ; [facility] Review of Systems Review of Systems not [...] Patient Last Documented On 0 1:32PM ; [facility] HPV, (quadrivalent) Gardasil 2 02/17/2008 Complete (Reported) Patient Last Documented On 0 1:32PM ; [facility] HPV, (quadrivalent) Gardasil 3 06/18/2008 Complete (Reported) Patient Last Documented On 0 1:32PM ; [facility] Allergies Includes: Active, inactive, and resolved Allergies Substance Type Reaction Onset Date Resolved Date Statu s Suprax Allergy 12/07/2009 Active Last Documented On 9 8:14AM ; [facility] Imitrex Allergy Skin Rashes / Eruption of skin, Hives / Urticaria 07/27/2013 Active Last Documented On 9 8:14AM ; [facility] Insurance Includes: Active Insurance Policies No Insurance Coverage Recorded Guarantor Relationship Effective Dates Guarantor Ph one LUIZ HERNANDEZ [id number] Clinical Notes Includes: Signed Clinical Notes starting from 06/01/2022 No Clinical Notes Recorded
--- OUTSIDE RECORDS SUMMARY | 2024-06-16 17:26 | XMS_ITS | Clinical Summary ---
Author Organization [facility] B Address [address] [place] [address] Care Team Providers Care Grain Spouter Name Role Phone Ely Wood MD Unavailable [phone] No, Physician Primary Care Provider [phone] Allergies Active Allergy Reactions Criticality Noted Date [...] 11/11/2023 Assessment & Plan (03/16/2024 10:07 AM HOSE WRAPPER): Better. DUB (dysfunctional uterine bleeding) 11/14/2022 Assessment & Plan (03/16/2024 10:07 AM HOSE WRAPPER): Will continue on with the prometrium. Assessment [...] medications. Assessment & Plan (05/16/2022 10:35 AM HOSE WRAPPER): Stable. Cont. Current prescription medications. Assessment & [...] 10/2021 Assessment & Plan (03/16/2024 10:07 AM HOSE WRAPPER): Normal in November Will repeat in November 2024 Assessment & Plan (11/11/2023 2:29 PM CDT): Pap repeated today Well woman exam 11/10/2021 Overview (11/11/2023): Lab: Pap:ascus with negative HPV 10/2022 No recent labs. Arnaldo: Colonoscopy: BMD: Gardasil:07/13 Assessment & Plan (03/16/2024 10:08 AM HOSE WRAPPER): Due in November. Assessment & Plan (11/11/2023 [...] citalopram. Assessment & Plan (05/16/2022 10:36 AM HOSE WRAPPER): Stable, however citalopram was increased due to worsening anxiety. Assessment & Plan (01/09/2022 11:15 AM CDT): Sent new Rx for increased dose of citalopram. Patient advised not to change medications on her own. Assessment & Plan (07/21/2021 8:15 PM HOSE WRAPPER): Clinically improved, continue current prescription medications. Assessment & Plan (06/11/2021 11:56 PM HOSE WRAPPER): Re-start Citalopram, referred to psychiatry. Call 911 [...] citalopram. Assessment & Plan (05/16/2022 10:36 AM HOSE WRAPPER): Worsening, increase Citalopram 20 mg up to 40 mg daily. Encouraged patient to see psychiatry and CBT. Assessment & Plan (01/09/2022 11:13 AM CDT): New prescription written for higher dose of citalopram. Patient advised not to change her medications without discussing with primary care physician 1st. Assessment & Plan (06/11/2021 11:56 PM HOSE WRAPPER): Re-start Citalopram, referred to psychiatry. Call 911 [...] brain. Assessment & Plan (06/11/2021 11:55 PM HOSE WRAPPER): Referred to psychiatry for further eval/mgmt. B12 [...] (11/03/2021): Added automatically from request for surgery [id number] Assessment & Plan (01/30/2022 9:58 AM CDT): [...] Department Care Team Description 03/16/2024 9:30 AM HOSE WRAPPER Office Visit [facility] at [address] [address] Ely Wood MD DUB (dysfunctional [...] Headaches; Cancer Neg Hx no colon or celery packer cancer no chagne cmt 11/11/23 Relation Name [...] on file Legal Sex Female 1:41 AM HOSE WRAPPER Gender Identity Female 08/09/2022 10:17 AM CDT [...] Mem branes > 18 hours Delivery Location:This [facility] Last Filed Vital Signs Vital Sign Reading Time Taken Comments Blood Pressure 116/74 03/16/2024 9:28 AM HOSE WRAPPER Pulse 95 10/31/2023 4:31 PM CDT Temperature 36.9 ??C (98.4 ??F) 10/31/2023 4:31 PM CD T Respiratory Rate 17 10/31/2023 4:31 PM CDT Oxygen Saturation 97% 10/31/2023 4:31 PM CDT Inhaled Oxygen Concentration - - Weight 74.8 kg (165 lb) 03/16/2024 9:28 AM HOSE WRAPPER Height 160 cm (5' 3 ) 11/11/2023 [...] THIS SPECIMEN WAS RESCREENED PART OF OUR RECOOPERER PROGRAM. Specimen adequacy: Comment [facility] - 01 [...] PM CDT Performed at: ??01 - [facility] [address], [place] ??[id number] Supervisor Of Guidance And Testing: Beverly Fermin MD, Phone: ??[phone] Performed at: ??02 - [facility] [place], [place] ??[id number] Supervisor Of Guidance And Testing: Beverly Fermin MD, Phone: ??[phone] Specimen Comment: [id number] Specimen Comment: No. of containers..01 ThinPrep Vial us Ely Wood MD LAB CYTOLOGY ORDERA BLES Final Result Performing Organization Address [facility] Co de Phone Number [facility] - [...] last revised on 2019. Testing performed by: [facility], [address] [place] [address], [place]., [address] Blood 11/01/2021 2:55 PM CDT 11/02/2021 9:05 AM CDT us Ely Wood MD LAB MICROBI OLOGY - GENERAL ORDERABLES Edited Result - Final Performing Organization Address City/[facility]/ZIP Co de Phone Number [facility] ([place]) [address] [place] [address] from Last 3 Months or Most Recently Relevant to Health Maintenance Insurance [employer] [facility] CHOICE PLUS [facility] HMO/PPO Address: [address] [address] [place] [address] [facility]PPO Address: [address] [address] [place] [address] [facility] [id number] [facility] CHOICE PLUS [facility] H[facility]/PPO Address: [address] [address] [place] [address] Advance Directives For more information, please contact: [phone] * Full Code (Latest Code Status on File) Date Activated Date Inactivated Comments 01/15/2018 7:10 AM 01/17/2018 6:05 PM * Full Code Date Activated Date Inactivated Comments 01/14/2018 12:19 AM 01/15/2018 7:10 AM * Full Code Date Activated Date Inactivated Comments 01/08/2018 4:29 PM 01/14/2018 12:19 AM Full CPR in case of cardiopulmonary arrest Care Teams Grain Spouter Relationship Specialty Start Date End Date No, Physician PCP - General 03/16/24 Ely Wood MD Consulting Physician Obstetrics and Gynecology 07/21/21
== END 2024-06-16 17:24 | disposition left against medical advice (07) ==
PROVIDERS: Emergency Medicine; Emergency Provider Registered Nurse; PCP Family Medicine
DX: F41.9 Anxiety disorder, unspecified (principal); F32.A Depression, unspecified
CPT/HCPCS: 36415; 80048; 81003; 81025; 85025; 93005; 99283